=== PATIENT | female | born 1960 | race Caucasian/White ===

== ENCOUNTER 2016-12-02 20:53 | Emergency (ER) | payer BC ==
[~2016-12-02] VITALS: Ht 154.9 cm; Wt 56.1 kg
[~2016-12-02 20:53] MED LIST: ATV5 PO; FAMO20TA11 PO; PARO1TAB27 PO; ZFRODT4 SL
[2016-12-02 20:56] VITALS: TEMP 36.9; Ht 154.9 cm; Wt 56.1 kg
[2016-12-02] MEDS ORDERED: SULFAMETHOXAZOLE/TRIMETHOPRIM DS 800/160MG TAB PO STA (21:11)
[2016-12-02] MEDS ORDERED: CEFTRIAXONE SOD INJ 1 GM ADDVIAL IV STA (21:11)
[2016-12-02] MEDS ORDERED: ACET-1256 PO (21:32)
--- NOTE | 2016-12-02 21:32 | EMERGENCY ROOM VISIT NOTE ---
History Report prepared by Armando: Maren Goins Under the Supervision of: Dr. Allan Nichole M.D. First contact with patient: 21:05 Chief Complaint: INFECTION Stated Complaint: INFECTION IN RT ARM,RASH,RED SPLOTCHES Nursing Triage Summary: patient c/o right forearm redness/swelling that began yesterday that is beginning to spread. History of Present Illness The patient is a 56 year old female who presents to the Emergency Room with complaints of a worsening rash to her right forearm. She notes that the rash is red and splotchy. It began yesterday and has been spreading since then. The patient notes that her right arm is frequently puffy and swollen and she wraps it at night, but she has never had a similar rash before. Currently, she is not in any pain. She has a history of breast cancer with metastasis to the bones. She follows up with Dr. Alarcon of oncology and [facility] in [place]. She is currently on medication for her cancer. Source of History: patient Onset: yesterday Position: arm (right) Quality: other (red, splotchy) Timing: worsening Review of Systems See HPI for pertinent positives & negatives. A total of 10 systems reviewed and were otherwise negative. Past Medical & Surgical Medical Problems: (1) Breast cancer Family History No pertinent family history stated. Social History Smoking Status: Never Smoker Marital Status: Occupation Status: employed Current/Historical Medications Scheduled Bupropion (Wellbutrin), 150 MG PO QAM Calcium Carbonate-Cholecalcife (Calcium 600+D3 600-400 mg-Unit), 1 TAB PO BID Cephalexin Monohydrate (Keflex), 500 MG PO QID Cyclosporine (Ophth) (Restasis), 1 DROP OPB BID Everolimus (Afinitor), 10 MG PO QAM Exemestane (Aromasin), 25 MG PO QAM Fentanyl (Fentanyl), 75 MCG TOP CQ72HR Gabapentin (Neurontin), 300 MG PO Q4H Multivitamins/Minerals (Mvi With Minerals), 1 TAB PO DAILY Sulfa/Trimethoprim (Bactrim Ds 800MG/160MG), 1 TAB PO BID Venlafaxine Hcl (Effexor Xr), 75 MG PO QAM Venlafaxine Hcl (Effexor Xr), 150 MG PO QAM Scheduled PRN Acetaminophen (Tylenol), 500 MG PO Q4-6HRS PRN for Pain Tramadol (Ultram), 50 MG PO Q4-6HRS PRN for Pain Allergies Coded Allergies: Iodinated Contrast Media (Verified Allergy, Mild, RASH, 12/02/16) Physical Exam Vital Signs Date Time Temp Pulse Resp B/P Pulse Ox O2 Delivery O2 Flow Rate FiO2 12/02/16 22:37 76 20 112/69 98 Room Air 12/02/16 21:33 92 12/02/16 20:56 36.9 97 16 150/88 96 Room Air Physical Exam GENERAL: Patient is a healthy-appearing well-nourished 56 year old female HEAD: Normocephalic atraumatic EYES: Ocular movements intact pupils equal and react to light OROPHARYNX mucous membranes are moist no exudates present no erythema or edema present NECK: Supple no nuchal rigidity CHEST: Good equal expansion LUNGS: Clear and equal to auscultation CARDIAC: Normal S1 and S2 ABDOMEN: Soft nontender no guarding BACK: No CVA tenderness EXTREMITIES: No pain upon palpation normal muscle strength in all groups no clubbing or cyanosis. RIght forearm is grossly swollen with an area of redness to the anterior portion of the arm about 2x2 inches. NEURO: Patient is following commands is answering questions appropriately. Alert and oriented x3 Cranial Nerves 2-12 grossly intact Medical Decision & Procedures ER Provider Diagnostic Interpretation: Radiology results as stated below per my review and radiologist interpretation: ULTRASOUND RIGHT UPPER EXTREMITY VENOUS CLINICAL HISTORY: Right arm swelling. COMPARISON STUDY: No priors. TECHNIQUE: Real-time, grayscale, and color Doppler sonography of the deep veins of the right upper extremity is performed. Compression and augmentation were utilized. FINDINGS: There is no sonographic evidence of deep venous thrombosis identified in the right upper extremity. The right internal jugular, axillary, and brachial veins are patent and normally compressible. Normal venous waveforms and augmentation are seen within the right subclavian vein. The cephalic and basilic veins are clear. The visualized radial and ulnar veins are patent. No sonographic abnormality is identified at the site of erythema in the right upper extremity. IMPRESSION: There is no sonographic evidence of deep venous thrombosis identified in the right upper extremity. Electronically signed by: Will Ordonez M.D. 12/02/2016 10:24 PM Dictated Date/Time: 12/02/2016 10:23 PM Laboratory Results 12/02/16 21:25 Red Blood Count 3.97, Mean Corpuscular Volume 84.6, Mean Corpuscular Hemoglobin 27.7, Mean Corpuscular Hemoglobin Concent 32.7, Mean Platelet Volume 10.2, Neutrophils (%) (Auto) 61.2, Lymphocytes (%) (Auto) 28.1, Monocytes (%) (Auto) 8.8, Eosinophils (%) (Auto) 1.3, Basophils (%) (Auto) 0.3, Neutrophils # (Auto) 2.45, Lymphocytes # (Auto) 1.12, Monocytes # (Auto) 0.35, Eosinophils # (Auto) 0.05, Basophils # (Auto) 0.01 12/02/16 21:25 Test 12/02/16 21:25 White Blood Count 3.99 K/uL (4.8-10.8) Red Blood Count 3.97 M/uL (4.2-5.4) Hemoglobin 11.0 g/dL (12.0-16.0) Hematocrit 33.6 % (37-47) Mean Corpuscular Volume 84.6 fL (80-100) Mean Corpuscular Hemoglobin 27.7 pg (25-34) Mean Corpuscular Hemoglobin Concent 32.7 g/dl (32-36) Platelet Count 142 K/uL (130-400) Mean Platelet Volume 10.2 fL (7.4-10.4) Neutrophils (%) (Auto) 61.2 % Lymphocytes (%) (Auto) 28.1 % Monocytes (%) (Auto) 8.8 % Eosinophils (%) (Auto) 1.3 % Basophils (%) (Auto) 0.3 % Neutrophils # (Auto) 2.45 K/uL (1.4-6.5) Lymphocytes # (Auto) 1.12 K/uL (1.2-3.4) Monocytes # (Auto) 0.35 K/uL (0.11-0.59) Eosinophils # (Auto) 0.05 K/uL (0-0.5) Basophils # (Auto) 0.01 K/uL (0-0.2) RDW Standard Deviation 42.1 fL (36.4-46.3) RDW Coefficient of Variation 13.6 % (11.5-14.5) Immature Granulocyte % (Auto) 0.3 % Immature Granulocyte # (Auto) 0.01 K/uL (0.00-0.02) Anion Gap 8.0 mmol/L (3-11) Est Creatinine Clear Calc Drug Dose 43.6 ml/min Estimated GFR () 65.5 Estimated GFR (Non- 56.5 BUN/Creatinine Ratio 15.0 (10-20) Calcium Level 8.8 mg/dl (8.5-10.1) Total Bilirubin 0.2 mg/dl (0.2-1) Direct Bilirubin < 0.1 mg/dl (0-0.2) Aspartate Amino Transf (AST/SGOT) 39 U/L (15-37) Alanine Aminotransferase (ALT/SGPT) 46 U/L (12-78) Alkaline Phosphatase 84 U/L (45-117) Total Protein 7.5 gm/dl (6.4-8.2) Albumin 3.1 gm/dl (3.4-5.0) Lipase 88 U/L (73-393) Labs reviewed by ED physician. Medications Administered Medications (Trade) Dose Ordered Sig/Celine Route Start Time Stop Time Status Last Admin Dose Admin Ceftriaxone Sodium (Rocephin Inj) 1 gm NOW STAT IV 12/02/16 21:11 12/02/16 21:13 DC 12/02/16 21:34 1 GM Trimethoprim/ Sulfamethoxazole (Septra Ds 800/ 160MG Tab) 1 tab NOW STAT PO 12/02/16 21:11 12/02/16 21:13 DC 12/02/16 21:34 1 TAB ED Course 2106: Past medical records reviewed. The patient was evaluated in room C8. A complete history and physical examination was performed. 2110: Ordered Trimethoprim/Sulfamethoxazole 1 tab PO, Rocephin Inj 1 gm IV. 4: Upon reexamination the patient is resting comfortably. I discussed results and treatment plan with the patient. She verbalizes agreement and understanding. The patient is ready for discharge. Medical Decision Differential diagnosis: Etiologies such as cellulitis, abscess, MRSA infection, DVT, necrotizing fasciitis, dermatitis, drug eruption, as well as others were entertained. This is a 56-year-old female who presents emergency department complaining of swelling as well as blotchiness to her right upper extremity the patient does not have an elevation in her white blood count however she has a history of lymph node biopsies in this arm. The patient was sent for an ultrasound of the arm. I felt that she can be started on Rocephin as well as Bactrim. I think that the patient is well enough to be discharged home for follow-up with her primary care physician. Patient was in agreement with the treatment plan. Impression Primary Impression: Cellulitis of arm, right Scribe Attestation The scribe's documentation has been prepared under my direction and personally reviewed by me in its entirety. I confirm that the note above accurately reflects all work, treatment, procedures, and medical decision making performed by me. Departure Information Dispostion Home / Self-Care Prescriptions Sulfa/Trimethoprim (Bactrim Ds 800MG/160MG) Tab 1 TAB PO BID for 10 Days, #20 TAB Prov: Allan Nichole MD 12/02/16 Cephalexin Monohydrate (KEFLEX) 500 Mg Cap 500 MG PO QID, #10 CAP Prov: Allan Nichole MD 12/02/16 Referrals Stevan Alarcon M.D. (PCP) Patient Instructions Cellulitis - [facility], My [facility] Additional Instructions You have been examined and treated today on an emergency basis only. This is not a substitute for, or an effort to provide, complete comprehensive medical care. It is impossible to recognize and treat all injuries or illnesses in a single emergency department visit. It is therefore important that you follow up closely with Dr More. Call as soon as possible for an appointment. Thank you for your time and consideration. I look forward to speaking with you again soon. Please don't hesitate to call us if you have any questions.
[2016-12-02 21:37] LABS: BASO % 0.3 %; BASO ABS # 0.01 K/uL (0-0.2); COMPLETE YES; EOS % 1.3 %; HEMATOCRIT 33.6 % (37-47); IG% 0.3 %; LYMPH % 28.1 %; LYMPH ABS # 1.12 K/uL (1.2-3.4); MEAN CELL VOLUME 84.6 fL (80-100); MEAN CORPUSCULAR HEMOGLOBIN 27.7 pg (25-34); MEAN CORPUSCULAR HGB CONC 32.7 g/dl (32-36); MEAN PLATELET VOLUME 10.2 fL (7.4-10.4); MONO % 8.8 %; NEUT % 61.2 %; PLATELET COUNT 142 K/uL (130-400); RED BLOOD COUNT 3.97 M/uL (4.2-5.4); WHITE BLOOD COUNT 3.99 K/uL (4.8-10.8)
[2016-12-02 21:53] LABS: ALT/SGPT 46 U/L (12-78); BLOOD UREA NITROGEN 17 mg/dl (7-18); CALCIUM 8.8 mg/dl (8.5-10.1); CARBON DIOXIDE 30 mmol/L (21-32); CHLORIDE 102 mmol/L (98-107); GLUCOSE 96 mg/dl (70-99); POTASSIUM 3.8 mmol/L (3.5-5.1); SODIUM 140 mmol/L (136-145)
[2016-12-02 21:57] LABS: ALKALINE PHOSPHATASE 84 U/L (45-117); AST/SGOT 39 U/L (15-37)
--- NOTE | 2016-12-02 22:25 | DIAGNOSTIC IMAGING REPORT ---
ULTRASOUND RIGHT UPPER EXTREMITY VENOUS CLINICAL HISTORY: Right arm swelling. COMPARISON STUDY: No priors. TECHNIQUE: Real-time, grayscale, and color Doppler sonography of the deep veins of the right upper extremity is performed. Compression and augmentation were utilized. FINDINGS: There is no sonographic evidence of deep venous thrombosis identified in the right upper extremity. The right internal jugular, axillary, and brachial veins are patent and normally compressible. Normal venous waveforms and augmentation are seen within the right subclavian vein. The cephalic and basilic veins are clear. The visualized radial and ulnar veins are patent. No sonographic abnormality is identified at the site of erythema in the right upper extremity. IMPRESSION: There is no sonographic evidence of deep venous thrombosis identified in the right upper extremity. Electronically signed by: Will Ordonez M.D. 12/02/2016 10:24 PM Dictated Date/Time: 12/02/2016 10:23 PM
[2016-12-02 22:37] VITALS: BP 112/69; PULSE 76; O2SAT 98
[2016-12-02] MEDS ORDERED: CEPH500C2 PO (22:50)
[2016-12-02] MEDS ORDERED: SULF800T23 PO (22:50)
[2017-06-20] MEDS ORDERED: VNCS125 PO ×2 (15:43→16:06)
[2017-06-20] MEDS ORDERED: DOCU-94 PO (15:46)
[2017-06-20] MEDS ORDERED: VANC1CAP19 PO (16:37)
== END 2016-12-02 23:03 | disposition home or self-care (01) ==
LOC: C.EDB 20:54 → C.EDC 23:03
DX: L03.111 Cellulitis of right axilla (principal); Z85.3 Personal history of malignant neoplasm of breast; Z79.899 Other long term (current) drug therapy; Z91.041 Radiographic dye allergy status

== ENCOUNTER → 2016-12-15 | Outpatient (CLI) | payer BC ==
[~2016-12-15] MED LIST changes: +ACET-1256 PO; +ATV/1 PO; -ATV5 PO; +BUPR75TA20 PO; +CALC-574 PO; +CEPH500C2 PO; +CYCL0.052 OPB; +DENOINJ INJ; +DOCU-94 PO; +EVER10TA PO; +EXEM1TAB PO; -FAMO20TA11 PO; +FENT75DI2 TOP; +GABA-113 PO; +GADAVIST IV PRN; +IBUP-1050 PO; +MULT-513 PO; -PARO1TAB27 PO; +TRAM-10 PO; +VANC1CAP19 PO; +VENL150C PO; +VENL75CA PO; +VNCS125 PO; -ZFRODT4 SL
--- NOTE | 2016-12-15 15:27 | DIAGNOSTIC IMAGING REPORT ---
MRI OF THE BRAIN WITHOUT AND WITH IV CONTRAST CLINICAL HISTORY: Breast carcinoma, confusion, disorientation. History of bone metastases. Evaluate for parenchymal metastatic disease. COMPARISON STUDY: No previous studies for comparison. TECHNIQUE: MRI of the brain was performed from the vertex to the skull base utilizing various T1 and T2 weighted sequences. Following the IV administration of 5.5 mL of Gadavist contrast, additional enhanced images were obtained. FINDINGS: Sagittal T1, axial diffusion, proton density and T2 weighted axial, coronal FLAIR, and pre and post axial T1-weighted images were acquired. These were supplemented with post gadolinium coronal T1 weighted images. The patient was imaged under 0.7 (MRI scanner. No intra or extra-axial mass lesions are visualized. Axial diffusion-weighted images reveal no evidence of acute or subacute infarction. There is no evidence of ventricular dilatation. Proton density T2-weighted and FLAIR images reveal a punctate focus of increased T2 signal within the subcortical left posterior frontal white matter. This is of doubtful acute clinical significance There are no abnormal flow voids. There is no evidence of pathologic enhancement. There is a right maxilla sinus retention cyst. IMPRESSION: 1. No acute intracranial findings 2. No evidence of intracranial metastatic disease 3. No evidence of acute or subacute infarction Electronically signed by: Danny Holly M.D. 12/15/2016 3:25 PM Dictated Date/Time: 12/15/2016 3:22 PM
== END | disposition home or self-care (01) ==
LOC: C.OPENMRI 14:13
PROVIDERS: ATTEND Internal Medicine Hematology
DX: R41.0 Disorientation, unspecified (principal); Z85.3 Personal history of malignant neoplasm of breast

== ENCOUNTER → 2017-06-02 | Outpatient (CLI) | payer BC ==
[~2017-06-02] MED LIST changes: -GADAVIST IV PRN
== END | disposition home or self-care (01) ==
LOC: C.PATHSPEC 17:23
PROVIDERS: ATTEND Dentist Oral and Maxillofacial Surgery
DX: M87.9 Osteonecrosis, unspecified (principal)

== ENCOUNTER 2017-06-16 15:40 | Inpatient (IN) | payer OTHER, BC ==
[~2017-06-16] VITALS: Ht 154.9 cm; Wt 53.9 kg
[~2017-06-16 15:40] MED LIST changes: -ATV/1 PO; -BUPR75TA20 PO; -CALC-574 PO; -CEPH500C2 PO; -CYCL0.052 OPB; -DENOINJ INJ; -DOCU-94 PO; -EVER10TA PO; -EXEM1TAB PO; -FENT75DI2 TOP; -GABA-113 PO; -IBUP-1050 PO; -MULT-513 PO; -TRAM-10 PO; -VANC1CAP19 PO; -VENL150C PO; -VENL75CA PO; -VNCS125 PO
[2017-06-16 15:44] VITALS: Ht 154.9 cm; Wt 53.9 kg
[2017-06-16] MEDS ORDERED: SODIUM CHLORIDE 0.9% 1000ML 1,000 ML IV STA ×3 (17:02→22:34)
[2017-06-16] MEDS ORDERED: ONDANSETRON 8 MG/54 ML D5W IV STA ×2 (17:02→21:09)
--- NOTE | 2017-06-16 17:14 | EMERGENCY ROOM VISIT NOTE ---
History Report prepared by Armando: Scott Mathews Under the Supervision of: Dr. Gina Mckeon D.O. First contact with patient: 16:50 Chief Complaint: FLU LIKE SX Stated Complaint: FLU TYPE SYMPTOMS, DEYHRATED History of Present Illness The patient is a 56 year old female who presents to the Emergency Room with complaints of intermittent diarrhea beginning three nights ago. The patient states that her symptoms began with an achy feeling, subjective fever, and a headache. She reports that she then developed diarrhea and vomiting. The patient states that she has 8-10 episodes of diarrhea daily. She reports that when she consumes anything, even ice chips, she dry heaves. The patient notes that she also developed intermittent, sharp, abdominal pain and bloating that has been reduced. She states that she has similar symptoms last month that lasted a day. The patient reports that she currently has metastatic breast cancer. She notes that she was treated with chemotherapy and currently takes pills to stabilize it. She denies hematochezia, recent travel, eating at new restaurants, rashes, and edema to the legs. The patient also denies a history of IBS, Crohn's disease, and colitis. Source of History: patient Onset: three nights ago Position: abdomen Quality: other (diarrhea) Timing: intermittent Associated Symptoms: + fevers, + vomiting, + abdominal pain, No hematochezia , No rash Note: Associated symptoms: achy feeling, bloating Denies: recent travel, eating at new restaurants, and edema to the legs Review of Systems See HPI for pertinent positives & negatives. A total of 10 systems reviewed and were otherwise negative. Past Medical & Surgical Medical Problems: (1) Breast cancer (2) C. difficile diarrhea Family History Patient reports no known family medical history. Social History Smoking Status: Never Smoker Marital Status: Occupation Status: employed Current/Historical Medications Scheduled Bupropion (Wellbutrin), 150 MG PO QAM Calcium Carbonate-Cholecalcife (Calcium 600+D3 600-400 mg-Unit), 1 TAB PO BID Cyclosporine (Ophth) (Restasis), 1 DROP OPB BID Denosumab (Xgeva), 1 DOSE INJ Q3MO Everolimus (Afinitor), 10 MG PO QAM Exemestane (Aromasin), 25 MG PO QAM Fentanyl (Fentanyl), 75 MCG TOP CQ72HR Gabapentin (Neurontin), 300 MG PO Q4H Multivitamins/Minerals (Mvi With Minerals), 1 TAB PO DAILY Venlafaxine Hcl (Effexor Xr), 75 MG PO QAM Venlafaxine Hcl (Effexor Xr), 150 MG PO QAM Scheduled PRN Ibuprofen (Advil), 200-400 MG PO Q4H PRN for Pain Tramadol (Ultram), 50 MG PO Q4-6HRS PRN for Pain Allergies Coded Allergies: Iodinated Contrast Media (Verified Allergy, Mild, RASH, 12/02/16) Physical Exam Vital Signs Date Time Temp Pulse Resp B/P (MAP) Pulse Ox O2 Delivery O2 Flow Rate FiO2 06/16/17 22:10 83 18 102/58 98 Room Air 06/16/17 20:10 90 18 135/66 94 Room Air 06/16/17 19:01 75 18 103/57 98 Room Air 06/16/17 17:30 79 16 121/66 99 Room Air 06/16/17 15:44 36.9 105 16 105/68 96 Room Air Physical Exam GENERAL: alert, pale appearing, well nourished, no distress, non-toxic EYE EXAM: normal conjunctiva, PERRL and EOM's grossly intact OROPHARYNX: no exudate, no erythema, lips, buccal mucosa, and tongue normal and mucous membranes are dry NECK: supple, no nuchal rigidity, no adenopathy, non-tender LUNGS: Clear to auscultation. Normal chest wall mechanics HEART: no murmurs, S1 normal and S2 normal ABDOMEN: abdomen soft, normo-active bowel sounds, no masses, no rebound or guarding. Generalized tenderness to palpation. BACK: Back is symmetrical on inspection and there is no deformity, no midline tenderness, no CVA tenderness. SKIN: no rashes and no bruising UPPER EXTREMITIES: upper extremities are grossly normal. LOWER EXTREMITIES: No pitting edema. NEURO EXAM: Normal sensorium, cranial nerves II-XII grossly intact, normal speech, no gross weakness of arms, no gross weakness of legs. Medical Decision & Procedures ER Provider Diagnostic Interpretation: Radiology results have been interpreted by the radiologist and reviewed by me. PA CHEST WITH ABDOMINAL SERIES CLINICAL HISTORY: Generalized abdominal pain. Diarrhea. FINDINGS: A PR chest radiograph is compared to study dated 08/21/2009. The cardiomediastinal silhouette is unremarkable. The lungs and pleural spaces are clear. No pneumothorax is seen. The skeletal structures are osteopenic. The bony thorax is grossly intact. Mild thoracolumbar scoliosis is observed. Surgical clips are noted in the right axilla and along the right chest wall. Supine and erect abdominal radiographs are correlated with abdominal ultrasound dated 02/21/2015. There is a nonobstructed abdominal bowel gas pattern. No evidence of intraperitoneal free air is seen. There are no abnormal abdominal calcifications. The lumbosacral spine and bony pelvis appear intact. Numerous osteoblastic bone lesions are suggested in the sacrum, the lumbar spine, and the pelvis. IMPRESSION: 1. No active disease in the chest. 2. Nonobstructed abdominal bowel gas pattern. 3. Findings suggest multifocal osteoblastic metastatic disease. Correlation with the patient's clinical findings and oncological history will be required. Electronically signed by: Will Ordonez M.D. 06/16/2017 6:41 PM Dictated Date/Time: 06/16/2017 6:38 PM Laboratory Results 06/16/17 17:30 Red Blood Count 3.72, Mean Corpuscular Volume 83.1, Mean Corpuscular Hemoglobin 26.3, Mean Corpuscular Hemoglobin Concent 31.7, Mean Platelet Volume 9.8, Neutrophils (%) (Auto) 88.3, Lymphocytes (%) (Auto) 5.2, Monocytes (%) (Auto) 5.5, Eosinophils (%) (Auto) 0.5, Basophils (%) (Auto) 0.1, Neutrophils # (Auto) 7.42, Lymphocytes # (Auto) 0.44, Monocytes # (Auto) 0.46, Eosinophils # (Auto) 0.04, Basophils # (Auto) 0.01 06/16/17 17:30 Test 06/16/17 17:30 06/16/17 19:16 White Blood Count 8.40 K/uL (4.8-10.8) Red Blood Count 3.72 M/uL (4.2-5.4) Hemoglobin 9.8 g/dL (12.0-16.0) Hematocrit 30.9 % (37-47) Mean Corpuscular Volume 83.1 fL (80-100) Mean Corpuscular Hemoglobin 26.3 pg (25-34) Mean Corpuscular Hemoglobin Concent 31.7 g/dl (32-36) Platelet Count 112 K/uL (130-400) Mean Platelet Volume 9.8 fL (7.4-10.4) Neutrophils (%) (Auto) 88.3 % Lymphocytes (%) (Auto) 5.2 % Monocytes (%) (Auto) 5.5 % Eosinophils (%) (Auto) 0.5 % Basophils (%) (Auto) 0.1 % Neutrophils # (Auto) 7.42 K/uL (1.4-6.5) Lymphocytes # (Auto) 0.44 K/uL (1.2-3.4) Monocytes # (Auto) 0.46 K/uL (0.11-0.59) Eosinophils # (Auto) 0.04 K/uL (0-0.5) Basophils # (Auto) 0.01 K/uL (0-0.2) RDW Standard Deviation 42.8 fL (36.4-46.3) RDW Coefficient of Variation 14.0 % (11.5-14.5) Immature Granulocyte % (Auto) 0.4 % Immature Granulocyte # (Auto) 0.03 K/uL (0.00-0.02) Anion Gap 7.0 mmol/L (3-11) Est Creatinine Clear Calc Drug Dose 47.9 ml/min Estimated GFR () 73.5 Estimated GFR (Non- 63.4 BUN/Creatinine Ratio 16.3 (10-20) Lactic Acid Level 0.8 mmol/L (0.4-2.0) Calcium Level 8.0 mg/dl (8.5-10.1) Magnesium Level 2.1 mg/dl (1.8-2.4) Total Bilirubin 0.3 mg/dl (0.2-1) Aspartate Amino Transf (AST/SGOT) 27 U/L (15-37) Alanine Aminotransferase (ALT/SGPT) 21 U/L (12-78) Alkaline Phosphatase 73 U/L (45-117) Total Protein 6.7 gm/dl (6.4-8.2) Albumin 2.7 gm/dl (3.4-5.0) Globulin 4.0 gm/dl (2.5-4.0) Albumin/Globulin Ratio 0.7 (0.9-2) Lipase 46 U/L (73-393) Urine Color YELLOW Urine Appearance CLEAR (CLEAR) Urine pH 5.0 (4.5-7.5) Urine Specific [place] 1.021 (1.000-1.030) Urine Protein 3+ (NEG) Urine Glucose (UA) NEG (NEG) Urine Ketones 3+ (NEG) Urine Occult Blood 2+ (NEG) Urine Nitrite NEG (NEG) Urine Bilirubin NEG (NEG) Urine Urobilinogen NEG (NEG) Urine Leukocyte Esterase NEG (NEG) Urine WBC (Auto) 1-5 /hpf (0-5) Urine RBC (Auto) 0-4 /hpf (0-4) Urine Hyaline Casts (Auto) 10-30 /lpf (0-5) Urine Epithelial Cells (Auto) >30 /lpf (0-5) Urine Bacteria (Auto) 2+ (NEG) Urine Renal Epithelial Cells /lpf (0-5) Urine Pathogenic Casts 5-10 GRANULAR CASTS /lpf (0) Urine Yeast (Auto) BUDDING (NONE PRSENT) Date/Time Source Procedure Growth Status 06/16/17 19:16 Stool C.difficile Toxin B Gene (PCR) - Final Positive for C. difficile toxin B gene Complete Laboratory results per my review. Medications Administered Medications (Trade) Dose Ordered Sig/Celine Route Start Time Stop Time Status Last Admin Dose Admin Sodium Chloride 1,000 ml @ 999 mls/hr Q1H1M STAT IV 06/16/17 17:02 06/16/17 18:21 DC 06/16/17 17:02 999 MLS/HR Ondansetron HCl (Zofran 8mg Iv) 8 mg NOW STAT IV 06/16/17 17:02 06/16/17 17:04 DC 06/16/17 17:29 8 MG Dicyclomine HCl (Bentyl Cap) 10 mg NOW ONCE PO 06/16/17 17:15 06/16/17 17:16 DC 06/16/17 17:29 10 MG Sodium Chloride 1,000 ml @ 999 mls/hr Q1H1M STAT IV 06/16/17 19:06 06/16/17 20:06 DC 06/16/17 20:40 999 MLS/HR Metronidazole (Flagyl Tab) 500 mg NOW STAT PO 06/16/17 20:25 06/16/17 20:27 DC 06/16/17 21:02 500 MG Ondansetron HCl (Zofran 8mg Iv) 8 mg NOW STAT IV 06/16/17 21:09 06/16/17 21:10 DC 06/16/17 21:15 8 MG Sodium Chloride 1,000 ml @ 125 mls/hr Q8H STAT IV 06/16/17 22:34 06/17/17 06:33 06/16/17 23:04 125 MLS/HR ECG Indication: abdominal pain Rate (beats per minute): 88 Rhythm: normal sinus Findings: no acute ischemic change, no ectopy, other (Normal axis, normal interval) ED Course 165: The patient was evaluated in room C07. A complete history and physical exam was performed. 1702: Ordered Ondansetron HCl 8mg IV, Sodium Chloride 1000 ml @ 999 mls/hr IV 1715: Ordered Bentyl Cap 10mg PO 190: Ordered Sodium Chloride 1000 ml @ 999 mls/hr IV 1911: I reevaluated the patient and discussed current exam findings. She states she feels better. 2024: Ordered Flagyl Tab 500mg PO 2108: Ordered Ondansetron HCl 8mg IV 2144: I reevaluated the patient, and she feels better and is going to try a PO trial. I discussed current exam findings. She reports she is still slightly nauseated, and her abdominal pain is gone. 2233: Ordered Sodium Chloride 1000 ml @ 125 mls/hr IV 2234: Upon reevaluation, the patient's nausea was intensified with the PO trial. She states "there is no way I can go home". I discussed the findings and the treatment plan with the patient. She expresses agreement and understanding. 2241: I discussed the patient's case with Dr. Hadley, [facility]. The patient will be evaluated for further treatment. Medical Decision Differential diagnoses includes but is not limited to gastritis, peptic ulcer disease, GERD, gallbladder disease, pancreatitis, small bowel obstruction, acute coronary syndrome, pericarditis, ischemic bowel, irritable bowel disease, irritable bowel syndrome, appendicitis, diverticulitis, malignancy, hernia, urinary tract infection, torsion, /ectopic , perforation, trauma, infectious. Lab stable compared to prior, especially in light of patient's history of metastatic disease and chemotherapy. Patient ill-appearing and dehydrated clinically, however labs reassuring. No evidence of bacteremia/sepsis. Patient 's abdomen soft and nontender, did not feel required additional imaging. Patient stool culture positive for C. difficile, additional stool culture still pending. Started on oral Flagyl. Patient was able tolerate some sips of by mouth, however stated that it made her nausea and pain worse. Patient given 2 L of IV fluid in the emergency Department but stated still felt too ill to go home. Patient admitted by the hospitalist for additional monitoring and treatment. Doubt perforation, GI bleed, bowel obstruction, cardiac etiology, vascular etiology. Consults Time Called: 2235 Consulting Physician: John [facility] Returned Call: [phone] I discussed the patient's [facility] The patient will be evaluated for further treatment. Impression Primary Impression: Dehydration Additional Impressions: Diarrhea C. difficile diarrhea Metastatic breast cancer Scribe Attestation The scribe's documentation has been prepared under my direction and personally reviewed by me in its entirety. I confirm that the note above accurately reflects all work, treatment, procedures, and medical decision making performed by me. Departure Information Dispostion Being Evaluated By Hospitalist Referrals Danii More M.D. (MEDICAL) (PCP) Patient Instructions [facility] Problem Qualifiers Additional Impressions: Diarrhea Diarrhea type: infectious Qualified Codes: A09 - Infectious gastroenteritis and colitis, unspecified
[2017-06-16] MEDS ORDERED: DICYCLOMINE HCL 10 MG CAP PO ONE (17:15)
[2017-06-16] MEDS ORDERED: DENOINJ INJ (17:31)
[2017-06-16] MEDS ORDERED: IBUP-1050 PO (17:31)
[2017-06-16 17:55] LABS: HEMATOCRIT 30.9 % (37-47); MEAN CELL VOLUME 83.1 fL (80-100); MEAN CORPUSCULAR HEMOGLOBIN 26.3 pg (25-34); MEAN CORPUSCULAR HGB CONC 31.7 g/dl (32-36); MEAN PLATELET VOLUME 9.8 fL (7.4-10.4); PLATELET COUNT 112 K/uL (130-400); RED BLOOD COUNT 3.72 M/uL (4.2-5.4)
[2017-06-16 18:09] LABS: BUN/CREATININE RATIO 16.3 (10-20); MAGNESIUM 2.1 mg/dl (1.8-2.4); POTASSIUM 3.6 mmol/L (3.5-5.1)
[2017-06-16 18:12] LABS: ALB/GLOB RATIO 0.7 (0.9-2)
--- NOTE | 2017-06-16 18:42 | DIAGNOSTIC IMAGING REPORT ---
PA CHEST WITH ABDOMINAL SERIES CLINICAL HISTORY: Generalized abdominal pain. Diarrhea. FINDINGS: A PA chest radiograph is compared to study dated 08/21/2009. The cardiomediastinal silhouette is unremarkable. The lungs and pleural spaces are clear. No pneumothorax is seen. The skeletal structures are osteopenic. The bony thorax is grossly intact. Mild thoracolumbar scoliosis is observed. Surgical clips are noted in the right axilla and along the right chest wall. Supine and erect abdominal radiographs are correlated with abdominal ultrasound dated 02/21/2015. There is a nonobstructed abdominal bowel gas pattern. No evidence of intraperitoneal free air is seen. There are no abnormal abdominal calcifications. The lumbosacral spine and bony pelvis appear intact. Numerous osteoblastic bone lesions are suggested in the sacrum, the lumbar spine, and the pelvis. IMPRESSION: 1. No active disease in the chest. 2. Nonobstructed abdominal bowel gas pattern. 3. Findings suggest multifocal osteoblastic metastatic disease. Correlation with the patient's clinical findings and oncological history will be required. Electronically signed by: Will Ordonez M.D. 06/16/2017 6:41 PM Dictated Date/Time: 06/16/2017 6:38 PM
[2017-06-16 18:45] LABS: BASO % 0.1 %; BASO ABS # 0.01 K/uL (0-0.2); COMPLETE YES; EOS % 0.5 %; IG% 0.4 %; LYMPH % 5.2 %; LYMPH ABS # 0.44 K/uL (1.2-3.4); MONO % 5.5 %; NEUT % 88.3 %
[2017-06-16 19:35] LABS: URINE APPEARANCE CLEAR (CLEAR); URINE BILIRUBIN NEG (NEG); URINE COLOR YELLOW; URINE EPITHELIAL CELL AUTO >30 /lpf (0-5); URINE NITRITE NEG (NEG); URINE SPECIFIC GRAVITY 1.021 (1.000-1.030); UROBILINOGEN NEG (NEG)
[2017-06-16 19:40] LABS: MANUAL MICROSCOPIC REQUIRED? NO; REVIEW REQ? YES
[2017-06-16 19:57] LABS: URINE PATH CASTS 5-10 GRANULAR CASTS /lpf (0)
[2017-06-16 19:58] LABS: ZZUR CULT IF INDIC CLEAN CATCH YES
[2017-06-16] MEDS ORDERED: METRONIDAZOLE 250 MG TAB PO STA (20:25)
[2017-06-16] MEDS ORDERED: CYCL0.052 OPB (21:32)
[2017-06-16] MEDS ORDERED: EVER10TA PO (21:32)
[2017-06-16] MEDS ORDERED: VENL75CA PO (21:32)
[2017-06-16] MEDS ORDERED: CALC-574 PO (21:32)
[2017-06-16] MEDS ORDERED: GABA-113 PO (21:32)
[2017-06-16] MEDS ORDERED: VENL150C PO (21:32)
[2017-06-16] MEDS ORDERED: EXEM1TAB PO (21:32)
[2017-06-16] MEDS ORDERED: FENT75DI2 TOP (21:32)
[2017-06-16] MEDS ORDERED: MULT-513 PO (21:32)
[2017-06-16] MEDS ORDERED: TRAM-10 PO (21:32)
[2017-06-16] MEDS ORDERED: BUPR75TA20 PO (21:32)
--- NOTE | 2017-06-16 23:18 | History and Physical ---
History & Physical Date & Time of Service: Jun 16, 2017 at 23:18 Chief Complaint: Flu Type Symptoms, Deyhrated Primary Care Physician: Danii More M.D. 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 was afebrile , normal white count , chronic anemia with Hb stable to approx baseline stool sample positive for C diff toxin assay pt denies of any sick contact or recent travel recently treated with PO Clindamycin for dental procedure /infection approx 4 - 6 weeks back pt given PO Flagyl in ED , pt continued to have loose watery diarrhea associated with severe abdominal cramps pt will be admitted to Medical floor for Iv hydration , supportive Care for poor PO intake /nausea Past Medical/Surgical History Medical Problems: (1) Breast cancer Status: Chronic Social History Smoking Status: Never Smoker Marital Status: Occupational Status: employed Multi-Drug Resistant Organisms History of MDRO: No Allergies Coded Allergies: Iodinated Contrast Media (Verified Allergy, Mild, RASH, 12/02/16) Home Medications Scheduled Bupropion (Wellbutrin), 150 MG PO QAM Calcium Carbonate-Cholecalcife (Calcium 600+D3 600-400 mg-Unit), 1 TAB PO BID Cyclosporine (Ophth) (Restasis), 1 DROP OPB BID Denosumab (Xgeva), 1 DOSE INJ Q3MO Everolimus (Afinitor), 10 MG PO QAM Exemestane (Aromasin), 25 MG PO QAM Fentanyl (Fentanyl), 75 MCG TOP [id number] Gabapentin (Neurontin), 300 MG PO Q4H Multivitamins/Minerals (Mvi With Minerals), 1 TAB PO DAILY Venlafaxine Hcl (Effexor Xr), 75 MG PO QAM Venlafaxine Hcl (Effexor Xr), 150 MG PO QAM Scheduled PRN Ibuprofen (Advil), 200-400 MG PO Q4H PRN for Pain Tramadol (Ultram), 50 MG PO Q4-6HRS PRN for Pain Review of Systems Constitutional: + chills, + weakness, + fatigue Respiratory: No cough, No sputum, No wheezing, No shortness of breath, No dyspnea on exertion, No dyspnea at rest, No hemoptysis, No problem reported Cardiovascular: No chest pain, No orthopnea, No PND, No edema, No claudication , No palpitations, No problem reported Abdomen: + pain, + nausea, + diarrhea Musculoskeletal: + problem reported (chronic back pain from bone mets ) Neurologic: + weakness, + vertigo Psychiatric: + anxiety Endocrine: + fatigue Physical Exam Vital Signs Date Time Temp Pulse Resp B/P (MAP) Pulse Ox O2 Delivery O2 Flow Rate FiO2 06/16/17 22:10 83 18 102/58 98 Room Air 06/16/17 20:10 90 18 135/66 94 Room Air 06/16/17 19:01 75 18 103/57 98 Room Air 06/16/17 17:30 79 16 121/66 99 Room Air 06/16/17 15:44 36.9 105 16 105/68 96 Room Air General Appearance: + pertinent finding (chronically ill appearting ) Head: normocephalic, atraumatic Eyes: normal inspection, PERRL, EOMI, sclerae normal Neck: supple, no adenopathy, thyroid normal, no JVD Respiratory/Chest: chest non-tender, lungs clear, normal breath sounds, no respiratory distress Cardiovascular: regular rate, rhythm, no edema, no JVD, normal peripheral pulses Abdomen/GI: normal bowel sounds, soft, + tenderness (on lower abdomen ) Extremities/Musculoskelatal: no calf tenderness, normal capillary refill, no pedal edema Neurologic/Psych: no motor/sensory deficits, alert, normal mood/affect, oriented x 3 Diagnostics Laboratory Results Results Past 24 Hours Test 06/16/17 17:30 06/16/17 19:16 Range/Units White Blood Count 8.40 4.8-10.8 K/uL Red Blood Count 3.72 4.2-5.4 M/uL Hemoglobin 9.8 12.0-16.0 g/dL Hematocrit 30.9 37-47 % Mean Corpuscular Volume 83.1 80-100 fL Mean Corpuscular Hemoglobin 26.3 25-34 pg Mean Corpuscular Hemoglobin Concent 31.7 32-36 g/dl Platelet Count 112 130-400 K/uL Mean Platelet Volume 9.8 7.4-10.4 fL Neutrophils (%) (Auto) 88.3 % Lymphocytes (%) (Auto) 5.2 % Monocytes (%) (Auto) 5.5 % Eosinophils (%) (Auto) 0.5 % Basophils (%) (Auto) 0.1 % Neutrophils # (Auto) 7.42 1.4-6.5 K/uL Lymphocytes # (Auto) 0.44 1.2-3.4 K/uL Monocytes # (Auto) 0.46 0.11-0.59 K/uL Eosinophils # (Auto) 0.04 0-0.5 K/uL Basophils # (Auto) 0.01 0-0.2 K/uL RDW Standard Deviation 42.8 36.4-46.3 fL RDW Coefficient of Variation 14.0 11.5-14.5 % Immature Granulocyte % (Auto) 0.4 % Immature Granulocyte # (Auto) 0.03 0.00-0.02 K/uL Sodium Level 139 136-145 mmol/L Potassium Level 3.6 3.5-5.1 mmol/L Chloride Level 107 98-107 mmol/L Carbon Dioxide Level 25 21-32 mmol/L Anion Gap 7.0 3-11 mmol/L Blood Urea Nitrogen 16 7-18 mg/dl Creatinine 1.00 0.60-1.20 mg/dl Est Creatinine Clear Calc Drug Dose 47.9 ml/min Estimated GFR () 73.5 Estimated GFR (Non- 63.4 BUN/Creatinine Ratio 16.3 10-20 Random Glucose 87 70-99 mg/dl Lactic Acid Level 0.8 0.4-2.0 mmol/L Calcium Level 8.0 8.5-10.1 mg/dl Magnesium Level 2.1 1.8-2.4 mg/dl Total Bilirubin 0.3 0.2-1 mg/dl Aspartate Amino Transf (AST/SGOT) 27 15-37 U/L Alanine Aminotransferase (ALT/SGPT) 21 12-78 U/L Alkaline Phosphatase 73 45-117 U/L Total Protein 6.7 6.4-8.2 gm/dl Albumin 2.7 3.4-5.0 gm/dl Globulin 4.0 2.5-4.0 gm/dl Albumin/Globulin Ratio 0.7 0.9-2 Lipase 46 73-393 U/L Urine Color YELLOW Urine Appearance CLEAR CLEAR Urine pH 5.0 4.5-7.5 Urine Specific [place] 1.021 1.000-1.030 Urine Protein 3+ NEG Urine Glucose (UA) NEG NEG Urine Ketones 3+ NEG Urine Occult Blood 2+ NEG Urine Nitrite NEG NEG Urine Bilirubin NEG NEG Urine Urobilinogen NEG NEG Urine Leukocyte Esterase NEG NEG Urine WBC (Auto) 1-5 0-5 /hpf Urine RBC (Auto) 0-4 0-4 /hpf Urine Hyaline Casts (Auto) 10-30 0-5 /lpf Urine Epithelial Cells (Auto) >30 0-5 /lpf Urine Bacteria (Auto) 2+ NEG Urine Renal Epithelial Cells 0-5 /lpf Urine Pathogenic Casts 5-10 GRANULAR CASTS 0 /lpf Urine Yeast (Auto) BUDDING NONE PRSENT Microbiology Results 06/16/17 C.difficile Toxin B Gene (PCR) - Final, Complete Positive for C. difficile toxin B gene 06/16/17 Shiga Toxin Test, Received Pending 06/16/17 Stool Culture, Received Pending 06/16/17 Urine Culture, Received Pending Diagnostic Radiology XRAY OF ABDOMEN : IMPRESSION: 1. No active disease in the chest. 2. Non obstructed abdominal bowel gas pattern. 3. Findings suggest multifocal osteoblastic metastatic disease. Correlation with the patient's clinical findings and oncological history will be required. Impression Assessment and Plan C DIFF COLITIS : presents with few days of abdominal pain, nausea , ongoing diarrhea , severe abdominal cramps with bowel movement Stool + C diff recently had tooth extraction ; was treated with PO Clindamycin afterward for infection possible cause of C diff diarrhea no evidence of sepsis , normal white count , no fever or chills hemodynamically stable Xray of abdomen no evidence of inflammation pt was started with PO Flagyl in ED given immunocompromised status ( Metastatic breast CA on chemo /immuno therapy ) -will change the regimen to PO Vancomycin will need total 10 days tx cont contact precaution pt is counselled for washing hands with soap and water after using bathroom and before eating importance of continued isolation precaution /hand hygiene for at least 2-3 weeks beyond Abx therapy to prevent spread of infection /or reinfection to self GENERALIZED WEAKNESS/POOR APPETITE /NAUSEA due to above ordered for IVF pt requested for clear liquid diet , can be advanced as tolerated no bowel obstruction noted in xray of abdomen Pt/OT eval ( underlying malignancy /lives alone ) HX OF BREAST CA WITH BONE METS : Dx in 2002-invasive ductal CA s/p surgical lymphadenectomy s/p chemo and radiation tx developed sever back pain ; MRI of lumber spine suggestive of bone metastasis follows with Dr Maya in [place] and [facility] in [facility] pt is currently on Xgeva Q 3 months and Aromasin /Afinitor given active GI infection /C diff colitis immuno therapy Xgeva should be postponed ( pt not due till Aug ) cont Fentanyl patch , Neurontin /tramadol for chronic back pain due to bone mets ANEMIA OF CHRONIC DISEASE : due to metastatic malignancy pt denies of any dark stool or blood in stool Hb at approx baseline FULL CODE DVT PROPHYLAXIS : Moderate to high risk due to metastatic Breast CA sub q heparin DISPOSITION ; expected to be discharged home when medically stable Medicine follow up with Dr More at [facility] Follow up with Dr Maya /Gaetano Aguilar in [place] Level of Care Med/Surg Resuscitation Status FULL RESUSCITATION VTE Prophylaxis VTE Risk Assessment Done? Y/N: Yes Risk Level: Moderate Given or contraindicated: Melida Stockings, SCD's Additional Copies To Danii More M.D. (MEDICAL) Stevan Alarcon M.D.
[2017-06-16] MEDS ORDERED: ONDANSETRON INJ 2 MG/ML 2 ML VIAL IV PRN (23:30)
[2017-06-16] MEDS ORDERED: DENOSUMAB INJ SCH (23:30)
[2017-06-16] MEDS ORDERED: MAGNESIUM HYDROXIDE SUSP 30 ML UDC PO PRN (23:30)
[2017-06-16] MEDS ORDERED: IV FLUIDS COMPLETED PRN (23:30)
[2017-06-16] MEDS ORDERED: ALUMINUM/MAGNESIUM/SIMETH (MAALOX MAX) 30 ML UDC PO PRN (23:30)
[2017-06-16] MEDS ORDERED: NON-FORMULARY MEDICATION (Fentanyl 75 MCG) TOP SCH (23:30)
[2017-06-16] MEDS ORDERED: POLYETHYLENE (MIRALAX) 17 GM PACK PO PRN (23:30)
[2017-06-17 02:15] VITALS: BP 114/74; PULSE 90; TEMP 36.9; O2SAT 100
[2017-06-17] MEDS: GABAPENTIN 300 MG CAP PO SCH ×5 (04:51→20:38)
[2017-06-17] MEDS: D5W AND NSS 1,000 ML IV SCH ×2 (04:51→13:26)
[2017-06-17] MEDS: IBUPROFEN 200 MG TAB PO PRN (04:52)
[2017-06-17 06:59] LABS: HEMATOCRIT 28.9 % (37-47); MEAN CELL VOLUME 82.8 fL (80-100); MEAN CORPUSCULAR HEMOGLOBIN 26.4 pg (25-34); MEAN CORPUSCULAR HGB CONC 31.8 g/dl (32-36); PLATELET COUNT 111 K/uL (130-400); RED BLOOD COUNT 3.49 M/uL (4.2-5.4); WHITE BLOOD COUNT 7.37 K/uL (4.8-10.8)
[2017-06-17 07:23] LABS: INR 1.1 (0.9-1.1); PROTHROMBIN TIME (PATIENT) 12.3 SECONDS (9.0-12.0)
[2017-06-17 07:29] LABS: BUN/CREATININE RATIO 16.6 (10-20); CALCIUM 6.8 mg/dl (8.5-10.1); CREATININE 0.82 mg/dl (0.60-1.20); MAGNESIUM 1.8 mg/dl (1.8-2.4); POTASSIUM 3.2 mmol/L (3.5-5.1)
[2017-06-17 07:44] VITALS: BP 102/65; PULSE 80; TEMP 36.8; O2SAT 99
[2017-06-17] MEDS ORDERED: FENTANYL PATCH REMOVE & WASTE SCH ×2 (07:59→20:00)
[2017-06-17 08:00] VITALS: O2SAT 99
[2017-06-17] MEDS ORDERED: FENTANYL 75 MCG/HR TDSY TD SCH ×2 (08:00→20:00)
[2017-06-17] MEDS: CHECK FENTANYL PATCH PLACEMENT SCH ×2 (08:00→16:00)
[2017-06-17] MEDS: RESTASIS~ORDER AWAITING ACTION SCH ×3 (08:00→23:50)
[2017-06-17] MEDS ORDERED: METRONIDAZOLE 500 MG TAB PO SCH (08:00)
[2017-06-17] MEDS: CALCIUM 600MG + VIT D 400 IU TAB PO SCH ×2 (09:44→20:38)
[2017-06-17] MEDS: CEROVITE ADV FORMULA TAB PO SCH (09:45)
[2017-06-17] MEDS: VENLAFAXINE HCL XR 75 MG CAPXR PO SCH (09:45)
[2017-06-17] MEDS: VENLAFAXINE HCL XR 150 MG CAPXR PO SCH (09:45)
[2017-06-17] MEDS ORDERED: NURSING VERBAL MED ORDER ONE (09:45)
[2017-06-17] MEDS: PANTOprazole SOD 40 MG TAB PO SCH (09:46)
[2017-06-17] MEDS: DICYCLOMINE HCL 10 MG CAP PO SCH ×3 (09:46→20:38)
[2017-06-17] MEDS: POTASSIUM CHLR 10 MEQ / WTR 10 MEQ in PREMIXED WATER 100 ML IV SCH ×3 (09:47→11:56)
[2017-06-17] MEDS: VANCOMYCIN HCL 125 MG/2.5ML SOLN PO SCH ×4 (09:50→20:42)
[2017-06-17] MEDS: RASPBERRY SYRUP 5 ML UDP PO SCH ×4 (09:50→20:42)
[2017-06-17] MEDS: HEPARIN SOD 5000 UNIT/0.5 ML CARP SQ SCH ×3 (09:53→20:41)
[2017-06-17] MEDS ORDERED: POTASSIUM CHLORIDE 20 MEQ TABCR PO ONE (13:15)
--- NOTE | 2017-06-17 16:29 | Progress Note ---
Subjective Date of Service: Jun 17, 2017. Subjective Pt evaluation today including: conversation w/ patient, physical exam, lab review, review of studies, review of inpatient medication list Saw/examined the patient in room 454 C/o watery diarrhea since Tuesday currently on clears; nausea improving potassium infusion is burning, but otherwise, stable Problem List Medical Problems: (1) Cellulitis Status: Acute (2) Dehydration Status: Acute (3) Diarrhea Status: Acute (4) Metastatic breast cancer Status: Acute Review of Systems Constitutional: No fever, No chills Respiratory: No shortness of breath Cardiac: No chest pain Abdomen: + nausea, + diarrhea, No pain, No vomiting, No constipation, No GI bleeding Medications Current Inpatient Medications Medications (Trade) Dose Ordered Sig/Celine Route Start Time Stop Time Status Last Admin Dose Admin Bupropion HCl (Wellbutrin Tab) 150 mg QAM PO 06/17/17 08:00 07/17/17 08:59 06/17/17 09:44 150 MG Gabapentin (Neurontin Cap) 300 mg Q4H PO 06/17/17 04:00 07/17/17 03:59 06/17/17 11:57 300 MG Ibuprofen (Advil Tab) 200 mg Q4H PRN PO 06/16/17 23:30 07/16/17 23:29 06/17/17 04:52 200 MG Multivitamins/ Minerals (Multivitamin W/ Minerals Tab) 1 tab DAILY PO 06/17/17 08:00 07/17/17 08:59 06/17/17 09:45 1 TAB Tramadol HCl (Ultram Tab) 50 mg Q4 PRN PO 06/16/17 23:30 07/16/17 23:29 Venlafaxine HCl (effeXOR EXTENDED REL CAP) 75 mg QAM PO 06/17/17 08:00 07/17/17 08:59 06/17/17 09:45 75 MG Venlafaxine HCl (effeXOR EXTENDED REL CAP) 150 mg QAM PO 06/17/17 08:00 07/17/17 08:59 06/17/17 09:45 150 MG Calcium/Vitamin D (Caltrate Plus Tab) 1 tab BID PO 06/17/17 08:00 07/17/17 08:59 06/17/17 09:44 1 TAB Miscellaneous Information (Order Awaiting Action) 1 ea QS N/A 06/17/17 08:00 07/17/17 07:59 Miscellaneous Information (Order Awaiting Action) 1 ea QS N/A 06/17/17 08:00 07/17/17 07:59 Miscellaneous Information (Order Awaiting Action) 1 ea QS N/A 06/17/17 08:00 07/17/17 07:59 Miscellaneous (Iv Fluids Completed) 1 ea PRN PRN N/A 06/16/17 23:30 06/16/18 23:29 Heparin Sodium (Porcine) (Heparin Sq 5000 Unit/0.5ml) 5,000 unit Q8 SQ 06/17/17 08:00 07/17/17 07:59 06/17/17 09:53 5,000 UNIT Acetaminophen (Tylenol Tab) 650 mg Q4H PRN PO 06/16/17 23:30 07/16/17 23:29 Al Hydrox/Mg Hydrox/Simethicone (Maalox Max Susp) 15 ml Q4H PRN PO 06/16/17 23:30 07/16/17 23:29 Magnesium Hydroxide (Milk Of Magnesia Susp) 30 ml Q6H PRN PO 06/16/17 23:30 07/16/17 23:29 Polyethylene (Miralax Powder Packet) 17 gm DAILY PRN PO 06/16/17 23:30 07/16/17 23:29 Zolpidem Tartrate (Ambien Tab) 5 mg HSZ PRN PO 06/16/17 23:30 07/16/17 23:29 Ondansetron HCl (Zofran Inj) 4 mg Q6H PRN IV 06/16/17 23:30 07/16/17 23:29 06/17/17 09:54 4 MG Pantoprazole Sodium (Protonix Tab) 40 mg QAM PO 06/17/17 08:00 07/17/17 08:59 06/17/17 09:46 40 MG Dicyclomine HCl (Bentyl Cap) 10 mg TID PO 06/17/17 08:00 07/17/17 08:59 06/17/17 13:26 10 MG Dextrose/Sodium Chloride 1,000 ml @ 80 mls/hr [id number] IV 06/17/17 01:15 07/17/17 01:14 06/17/17 13:26 80 MLS/HR Miscellaneous Information (Check Fentanyl Patch Placement) 1 ea QS N/A 06/17/17 08:00 07/17/17 07:59 06/17/17 08:00 1 EA Vancomycin HCl (Vancomycin Oral Soln) 125 mg QID PO 06/17/17 08:30 07/01/17 08:29 06/17/17 11:56 125 MG Raspberry (Raspberry Syrup 5ml Cup) 5 ml QID PO 06/17/17 08:30 07/01/17 08:29 06/17/17 11:56 5 ML Fentanyl (Duragesic Patch) 75 mcg Q3D@1999 TD 06/17/17 20:00 07/01/17 19:59 Miscellaneous (Fentanyl Patch Remove & Waste) 1 ea Q3D@1999 N/A 06/17/17 20:00 07/17/17 19:59 Potassium Chloride (Klor-Con M10) 10 meq DAILY PO 06/18/17 08:00 07/18/17 07:59 Objective Vital Signs Date Time Temp Pulse Resp B/P (MAP) Pulse Ox O2 Delivery O2 Flow Rate FiO2 06/17/17 08:00 99 Room Air 06/17/17 07:44 36.8 80 18 102/65 (77) 99 Room Air 06/17/17 02:15 36.9 90 20 114/74 100 Room Air 06/17/17 00:07 84 18 113/62 98 06/16/17 22:10 83 18 102/58 98 Room Air 06/16/17 20:10 90 18 135/66 94 Room Air 06/16/17 19:01 75 18 103/57 98 Room Air 06/16/17 17:30 79 16 121/66 99 Room Air 06/16/17 15:44 36.9 105 16 105/68 96 Room Air Physical Exam General Appearance: no apparent distress Respiratory/Chest: no respiratory distress, no accessory muscle use Abdomen: non tender, soft, + abnormal bowel sounds (hyperactive bowel sounds) Laboratory Results Last 24 Hours Test 06/16/17 17:30 06/16/17 19:16 06/17/17 06:39 White Blood Count 8.40 K/uL 7.37 K/uL Red Blood Count 3.72 M/uL 3.49 M/uL Hemoglobin 9.8 g/dL 9.2 g/dL Hematocrit 30.9 % 28.9 % Mean Corpuscular Volume 83.1 fL 82.8 fL Mean Corpuscular Hemoglobin 26.3 pg 26.4 pg Mean Corpuscular Hemoglobin Concent 31.7 g/dl 31.8 g/dl Platelet Count 112 K/uL 111 K/uL Mean Platelet Volume 9.8 fL 10.0 fL Neutrophils (%) (Auto) 88.3 % Lymphocytes (%) (Auto) 5.2 % Monocytes (%) (Auto) 5.5 % Eosinophils (%) (Auto) 0.5 % Basophils (%) (Auto) 0.1 % Neutrophils # (Auto) 7.42 K/uL Lymphocytes # (Auto) 0.44 K/uL Monocytes # (Auto) 0.46 K/uL Eosinophils # (Auto) 0.04 K/uL Basophils # (Auto) 0.01 K/uL RDW Standard Deviation 42.8 fL 42.7 fL RDW Coefficient of Variation 14.0 % 14.1 % Immature Granulocyte % (Auto) 0.4 % Immature Granulocyte # (Auto) 0.03 K/uL Sodium Level 139 mmol/L 141 mmol/L Potassium Level 3.6 mmol/L 3.2 mmol/L Chloride Level 107 mmol/L 111 mmol/L Carbon Dioxide Level 25 mmol/L 22 mmol/L Anion Gap 7.0 mmol/L 8.0 mmol/L Blood Urea Nitrogen 16 mg/dl 14 mg/dl Creatinine 1.00 mg/dl 0.82 mg/dl Est Creatinine Clear Calc Drug Dose 47.9 ml/min 58.4 ml/min Estimated GFR () 73.5 93.4 Estimated GFR (Non- 63.4 80.6 BUN/Creatinine Ratio 16.3 16.6 Random Glucose 87 mg/dl 122 mg/dl Lactic Acid Level 0.8 mmol/L Calcium Level 8.0 mg/dl 6.8 mg/dl Magnesium Level 2.1 mg/dl 1.8 mg/dl Total Bilirubin 0.3 mg/dl Aspartate Amino Transf (AST/SGOT) 27 U/L Alanine Aminotransferase (ALT/SGPT) 21 U/L Alkaline Phosphatase 73 U/L Total Protein 6.7 gm/dl Albumin 2.7 gm/dl Globulin 4.0 gm/dl Albumin/Globulin Ratio 0.7 Lipase 46 U/L Urine Color YELLOW Urine Appearance CLEAR Urine pH 5.0 Urine Specific [place] 1.021 Urine Protein 3+ Urine Glucose (UA) NEG Urine Ketones 3+ Urine Occult Blood 2+ Urine Nitrite NEG Urine Bilirubin NEG Urine Urobilinogen NEG Urine Leukocyte Esterase NEG Urine WBC (Auto) 1-5 /hpf Urine RBC (Auto) 0-4 /hpf Urine Hyaline Casts (Auto) 10-30 /lpf Urine Epithelial Cells (Auto) >30 /lpf Urine Bacteria (Auto) 2+ Urine Renal Epithelial Cells /lpf Urine Pathogenic Casts 5-10 GRANULAR CASTS /lpf Urine Yeast (Auto) BUDDING Prothrombin Time 12.3 SECONDS Prothromb Time International Ratio 1.1 Assessment and Plan This is a 56 year old female with a PMH of recurrent and metastatic breast CA, anemia of chronic disease, depression presents with C. Diff C. Diff Colitis patient had a recent tooth extraction was d/c'd on Clindamycin her last dose of Clindamycin was on June 13 She developed diarrhea, weakness, nausea, etc. Tuesday night presented here on 06/16 and found to have c. diff started on PO Vanco 125 QID [id number] this is her first episode - though she is immunocompromised with cancer and previous chemo and current ongoing immunomodulator therapy so she may need a longer course if she does not improve replace K and check K and Mg in AM Hx. of Metastatic Breast CA pain controlled, mets to the lumbar spine has undergone resection and chemo/radiation in the past currently receives Xgeva q3 months (next dose is in August or September) Anemia of Chronic Disease monitor H/H DVT ppx subq heparin FULL CODE likely d/c on 06/18 if K and Mg look okay and if not dehydrated
[2017-06-17] MEDS: ZOLPIDEM TARTRATE 5 MG TAB PO PRN (23:19)
[2017-06-17 23:36] VITALS: BP 103/70; PULSE 87; TEMP 37; O2SAT 98
[2017-06-18] VITALS: O2SAT 99
[2017-06-18] MEDS: GABAPENTIN 300 MG CAP PO SCH ×7 (00:39→23:46)
[2017-06-18] MEDS: CHECK FENTANYL PATCH PLACEMENT SCH ×4 (00:39→22:43)
[2017-06-18] MEDS: D5W AND NSS 1,000 ML IV SCH ×3 (02:11→23:46)
[2017-06-18] MEDS: HEPARIN SOD 5000 UNIT/0.5 ML CARP SQ SCH ×4 (04:58→23:46)
[2017-06-18] MEDS: RESTASIS~ORDER AWAITING ACTION SCH ×3 (07:10→22:43)
[2017-06-18 08:00] VITALS: O2SAT 94
[2017-06-18 08:05] VITALS: BP 94/60; PULSE 82; TEMP 37.4; O2SAT 94
[2017-06-18] MEDS: RASPBERRY SYRUP 5 ML UDP PO SCH ×4 (08:14→20:20)
[2017-06-18] MEDS: VANCOMYCIN HCL 125 MG/2.5ML SOLN PO SCH ×4 (08:14→20:21)
[2017-06-18] MEDS: VENLAFAXINE HCL XR 75 MG CAPXR PO SCH (08:15)
[2017-06-18] MEDS: POTASSIUM CHLORIDE 10 MEQ TABCR PO SCH (08:15)
[2017-06-18] MEDS: PANTOprazole SOD 40 MG TAB PO SCH (08:15)
[2017-06-18] MEDS: VENLAFAXINE HCL XR 150 MG CAPXR PO SCH (08:15)
[2017-06-18] MEDS: CEROVITE ADV FORMULA TAB PO SCH (08:15)
[2017-06-18] MEDS: DICYCLOMINE HCL 10 MG CAP PO SCH ×3 (08:15→20:20)
[2017-06-18] MEDS: CALCIUM 600MG + VIT D 400 IU TAB PO SCH ×2 (08:15→20:20)
[2017-06-18 09:43] LABS: HEMATOCRIT 30.4 % (37-47); MEAN CELL VOLUME 82.4 fL (80-100); MEAN CORPUSCULAR HEMOGLOBIN 25.5 pg (25-34); MEAN CORPUSCULAR HGB CONC 30.9 g/dl (32-36); MEAN PLATELET VOLUME 10.3 fL (7.4-10.4); PLATELET COUNT 146 K/uL (130-400); RED BLOOD COUNT 3.69 M/uL (4.2-5.4); WHITE BLOOD COUNT 5.39 K/uL (4.8-10.8)
[2017-06-18 10:49] LABS: BUN/CREATININE RATIO 5.5 (10-20); CREATININE 0.82 mg/dl (0.60-1.20); MAGNESIUM 1.7 mg/dl (1.8-2.4); POTASSIUM 3.1 mmol/L (3.5-5.1)
[2017-06-18] MEDS ORDERED: MAG SULFATE 50% INJ 4 GM in SODIUM CHLORIDE 0.9% 500ML 500 ML IV ONE (12:15)
[2017-06-18] MEDS ORDERED: POTASSIUM CHLORIDE 10 MEQ TABCR PO STA (12:22)
[2017-06-18] MEDS ORDERED: MAGNESIUM SULFATE 1GM / D5W 1 GM in PREMIXED IN D5W 100 ML IV STA (12:23)
[2017-06-18] MEDS: POTASSIUM CHLORIDE 20 MEQ TABCR PO SCH ×2 (12:50→16:32)
--- NOTE | 2017-06-18 12:59 | Progress Note ---
Subjective Date of Service: Jun 18, 2017. Subjective Pt evaluation today including: conversation w/ patient, physical exam, lab review, review of studies, review of inpatient medication list Saw/examined the patient in room 454 Still having diarrhea +weakness with ambulation Problem List Medical Problems: (1) Cellulitis Status: Acute (2) Dehydration Status: Acute (3) Diarrhea Status: Acute (4) Metastatic breast cancer Status: Acute Review of Systems Constitutional: + weakness, No fever, No chills Respiratory: No shortness of breath Cardiac: No chest pain Abdomen: + diarrhea, No pain, No nausea, No vomiting Medications Current Inpatient Medications Medications (Trade) Dose Ordered Sig/Celine Route Start Time Stop Time Status Last Admin Dose Admin Bupropion HCl (Wellbutrin Tab) 150 mg QAM PO 06/17/17 08:00 07/17/17 08:59 06/18/17 08:15 150 MG Gabapentin (Neurontin Cap) 300 mg Q4H PO 06/17/17 04:00 07/17/17 03:59 06/18/17 08:14 300 MG Ibuprofen (Advil Tab) 200 mg Q4H PRN PO 06/16/17 23:30 07/16/17 23:29 06/17/17 04:52 200 MG Multivitamins/ Minerals (Multivitamin W/ Minerals Tab) 1 tab DAILY PO 06/17/17 08:00 07/17/17 08:59 06/18/17 08:15 1 TAB Tramadol HCl (Ultram Tab) 50 mg Q4 PRN PO 06/16/17 23:30 07/16/17 23:29 Venlafaxine HCl (effeXOR EXTENDED REL CAP) 75 mg QAM PO 06/17/17 08:00 07/17/17 08:59 06/18/17 08:15 75 MG Venlafaxine HCl (effeXOR EXTENDED REL CAP) 150 mg QAM PO 06/17/17 08:00 07/17/17 08:59 06/18/17 08:15 150 MG Calcium/Vitamin D (Caltrate Plus Tab) 1 tab BID PO 06/17/17 08:00 07/17/17 08:59 06/18/17 08:15 1 TAB Miscellaneous Information (Order Awaiting Action) 1 ea QS N/A 06/17/17 08:00 07/17/17 07:59 Miscellaneous Information (Order Awaiting Action) 1 ea QS N/A 06/17/17 08:00 07/17/17 07:59 Miscellaneous Information (Order Awaiting Action) 1 ea QS N/A 06/17/17 08:00 07/17/17 07:59 Miscellaneous (Iv Fluids Completed) 1 ea PRN PRN N/A 06/16/17 23:30 06/16/18 23:29 Heparin Sodium (Porcine) (Heparin Sq 5000 Unit/0.5ml) 5,000 unit Q8 SQ 06/17/17 08:00 07/17/17 07:59 06/18/17 04:58 5,000 UNIT Acetaminophen (Tylenol Tab) 650 mg Q4H PRN PO 06/16/17 23:30 07/16/17 23:29 Al Hydrox/Mg Hydrox/Simethicone (Maalox Max Susp) 15 ml Q4H PRN PO 06/16/17 23:30 07/16/17 23:29 Magnesium Hydroxide (Milk Of Magnesia Susp) 30 ml Q6H PRN PO 06/16/17 23:30 07/16/17 23:29 Polyethylene (Miralax Powder Packet) 17 gm DAILY PRN PO 06/16/17 23:30 07/16/17 23:29 Zolpidem Tartrate (Ambien Tab) 5 mg HSZ PRN PO 06/16/17 23:30 07/16/17 23:29 06/17/17 23:19 5 MG Ondansetron HCl (Zofran Inj) 4 mg Q6H PRN IV 06/16/17 23:30 07/16/17 23:29 06/17/17 09:54 4 MG Pantoprazole Sodium (Protonix Tab) 40 mg QAM PO 06/17/17 08:00 07/17/17 08:59 06/18/17 08:15 40 MG Dicyclomine HCl (Bentyl Cap) 10 mg TID PO 06/17/17 08:00 07/17/17 08:59 06/18/17 08:15 10 MG Dextrose/Sodium Chloride 1,000 ml @ 80 mls/hr [id number] IV 06/17/17 01:15 07/17/17 01:14 06/18/17 02:11 80 MLS/HR Miscellaneous Information (Check Fentanyl Patch Placement) 1 ea QS N/A 06/17/17 08:00 07/17/17 07:59 06/18/17 08:18 1 EA Vancomycin HCl (Vancomycin Oral Soln) 125 mg QID PO 06/17/17 08:30 07/01/17 08:29 06/18/17 08:14 125 MG Raspberry (Raspberry Syrup 5ml Cup) 5 ml QID PO 06/17/17 08:30 07/01/17 08:29 06/18/17 08:14 5 ML Fentanyl (Duragesic Patch) 75 mcg Q3D@2000 TD 06/17/17 20:00 07/01/17 19:59 06/17/17 20:42 75 MCG Miscellaneous (Fentanyl Patch Remove & Waste) 1 ea Q3D@2000 N/A 06/17/17 20:00 07/17/17 19:59 06/17/17 20:00 1 EA Potassium Chloride (Klor-Con M10) 10 meq DAILY PO 06/18/17 08:00 07/18/17 07:59 06/18/17 08:15 10 MEQ Magnesium Sulfate 4 gm/Sodium Chloride 508 ml @ 125 mls/hr Q4H4M ONCE IV 06/18/17 12:15 06/18/17 16:18 Potassium Chloride (Klor-Con Tab) 40 meq Q4H PO 06/18/17 11:30 06/18/17 15:31 Objective Vital Signs Date Time Temp Pulse Resp B/P (MAP) Pulse Ox O2 Delivery O2 Flow Rate FiO2 06/18/17 08:05 37.4 82 16 94/60 (71) 94 Room Air 06/18/17 08:00 94 Room Air 06/18/17 00:00 99 Room Air 06/17/17 23:36 37.0 87 16 103/70 (81) 98 Room Air 06/17/17 16:00 Room Air Physical Exam General Appearance: no apparent distress Respiratory/Chest: lungs clear, normal breath sounds, no respiratory distress, no accessory muscle use Cardiovascular: regular rate, rhythm, no edema, no murmur Abdomen: non tender, soft, + abnormal bowel sounds (hyperactive bowel sounds) Laboratory Results Last 24 Hours Test 06/18/17 09:00 White Blood Count 5.39 K/uL Red Blood Count 3.69 M/uL Hemoglobin 9.4 g/dL Hematocrit 30.4 % Mean Corpuscular Volume 82.4 fL Mean Corpuscular Hemoglobin 25.5 pg Mean Corpuscular Hemoglobin Concent 30.9 g/dl RDW Standard Deviation 43.2 fL RDW Coefficient of Variation 14.3 % Platelet Count 146 K/uL Mean Platelet Volume 10.3 fL Sodium Level 144 mmol/L Potassium Level 3.1 mmol/L Chloride Level 113 mmol/L Carbon Dioxide Level 24 mmol/L Anion Gap 7.0 mmol/L Blood Urea Nitrogen 5 mg/dl Creatinine 0.82 mg/dl Est Creatinine Clear Calc Drug Dose 58.4 ml/min Estimated GFR () 93.4 Estimated GFR (Non- 80.6 BUN/Creatinine Ratio 5.5 Random Glucose 117 mg/dl Calcium Level 7.0 mg/dl Magnesium Level 1.7 mg/dl Assessment and Plan This is a 56 year old female with a PMH of recurrent and metastatic breast CA, anemia of chronic disease, depression presents with C. Diff C. Diff Colitis 06/18 Plan today is to replete the K and the Mg continue Vanco PO for a total of 2 weeks increase the fluid rate slightly 06/17 patient had a recent tooth extraction was d/c'd on Clindamycin her last dose of Clindamycin was on June 13 She developed diarrhea, weakness, nausea, etc. Tuesday night presented here on 06/16 and found to have c. diff started on PO Vanco 125 QID [id number] this is her first episode - though she is immunocompromised with cancer and previous chemo and current ongoing immunomodulator therapy so she may need a longer course if she does not improve replace K and check K and Mg in AM Hx. of Metastatic Breast CA pain controlled, mets to the lumbar spine has undergone resection and chemo/radiation in the past currently receives Xgeva q3 months (next dose is in August or September) Anemia of Chronic Disease monitor H/H DVT ppx subq heparin FULL CODE
[2017-06-18 14:48] VITALS: BP 93/58; PULSE 86; TEMP 37; O2SAT 98
[2017-06-18 20:00] VITALS: O2SAT 99
[2017-06-18] MEDS: IBUPROFEN 200 MG TAB PO PRN (21:35)
[2017-06-18 23:00] VITALS: BP 83/55; PULSE 76; TEMP 36.9; O2SAT 96
[2017-06-19] VITALS: O2SAT 99
[2017-06-19] MEDS: GABAPENTIN 300 MG CAP PO SCH ×5 (04:57→19:39)
[2017-06-19] MEDS: IBUPROFEN 200 MG TAB PO PRN (06:05)
[2017-06-19] MEDS: RESTASIS~ORDER AWAITING ACTION SCH ×2 (07:18→15:03)
[2017-06-19] MEDS ORDERED: NURSING VERBAL MED ORDER ONE (07:30)
[2017-06-19 07:51] VITALS: BP 94/59; PULSE 84; TEMP 36.6; O2SAT 100
[2017-06-19 07:51] LABS: HEMATOCRIT 25.5 % (37-47); MEAN CELL VOLUME 80.7 fL (80-100); MEAN CORPUSCULAR HEMOGLOBIN 26.6 pg (25-34); MEAN CORPUSCULAR HGB CONC 32.9 g/dl (32-36); MEAN PLATELET VOLUME 10.1 fL (7.4-10.4); PLATELET COUNT 126 K/uL (130-400); RED BLOOD COUNT 3.16 M/uL (4.2-5.4); WHITE BLOOD COUNT 3.35 K/uL (4.8-10.8)
[2017-06-19 08:00] VITALS: O2SAT 100
[2017-06-19] MEDS: VENLAFAXINE HCL XR 150 MG CAPXR PO SCH (08:31)
[2017-06-19] MEDS: DICYCLOMINE HCL 10 MG CAP PO SCH ×3 (08:31→19:39)
[2017-06-19] MEDS: PANTOprazole SOD 40 MG TAB PO SCH (08:31)
[2017-06-19] MEDS: CALCIUM 600MG + VIT D 400 IU TAB PO SCH ×2 (08:31→19:39)
[2017-06-19] MEDS: CEROVITE ADV FORMULA TAB PO SCH (08:31)
[2017-06-19] MEDS: VANCOMYCIN HCL 125 MG/2.5ML SOLN PO SCH ×4 (08:32→19:40)
[2017-06-19] MEDS: CHECK FENTANYL PATCH PLACEMENT SCH ×2 (08:32→15:26)
[2017-06-19] MEDS: RASPBERRY SYRUP 5 ML UDP PO SCH ×4 (08:32→19:40)
[2017-06-19] MEDS: VENLAFAXINE HCL XR 75 MG CAPXR PO SCH (08:32)
[2017-06-19 08:46] LABS: BUN/CREATININE RATIO 3.1 (10-20); CALCIUM 6.6 mg/dl (8.5-10.1); CREATININE 0.64 mg/dl (0.60-1.20); MAGNESIUM 2.7 mg/dl (1.8-2.4); POTASSIUM 3.9 mmol/L (3.5-5.1)
[2017-06-19] MEDS: POTASSIUM CHLORIDE 10 MEQ TABCR PO SCH (09:29)
[2017-06-19] MEDS: D5W AND NSS 1,000 ML IV SCH (09:29)
[2017-06-19] MEDS ORDERED: ATV/1 PO (10:50)
[2017-06-19] MEDS ORDERED: ARTIFICIAL TEARS OP SOLN OPB PRN ×2 (11:00)
[2017-06-19] MEDS ORDERED: LORAZEPAM 1 MG TAB PO PRN (11:00)
[2017-06-19] MEDS ORDERED: CALCIUM GLUCONATE 10% 2,000 MG in SODIUM CHLORIDE 0.9% 50ML 50 ML IV ONE (11:00)
[2017-06-19] MEDS ORDERED: HOME MED ADMINISTRATION SCH (11:00)
--- NOTE | 2017-06-19 11:04 | Progress Note ---
Medicine Progress Note Date & Time of Visit: Jun 19, 2017 at 10:53. Subjective tolerating clears, ok with attempting to advance diet chronic pain is present several BMs yesterday mostly after eating we discussed what cdiff is, how it is spread, and when she is no longer considered contagious as well as how to prevent it. Objective Last 8 Hrs Date Time Temp Pulse Resp B/P (MAP) Pulse Ox O2 Delivery O2 Flow Rate FiO2 06/19/17 08:00 100 Room Air 06/19/17 07:51 36.6 84 16 94/59 (71) 100 Room Air Physical Exam: GEN: WNWD, in no acute distress, alert and appropriate HEENT: NC/AT, normal sclerae, dry mouth CARDIO: reg rate, S1/2 heard without m/g/r LUNGS: CTA bilaterally, no crackles, rales or wheezes, good diaphragmatic excursion ABD: soft, diffuse mild tenderness, non-distended, no rebound or guarding, +BS EXTREMITY: RP and DP palpable 2+ bilat, no LE swelling or edema, extremities are warm and well-perfused NEURO: CN 2-12 grossly intact, no gross focal deficits. MUSC: 5/5 strength throughout, no focal deficits, ambulatory SKIN: warm and dry, some ecchymosis around injection site in RLQ of abdomen, no hematoma or fluctuant area noted. Laboratory Results: 06/19/17 07:16 06/19/17 07:16 Test 06/16/17 17:30 06/16/17 19:16 06/17/17 06:39 06/19/17 07:16 Immature Granulocyte % (Auto) 0.4 % White Blood Count 8.40 K/uL (4.8-10.8) Red Blood Count 3.72 M/uL (4.2-5.4) 3.16 M/uL (4.2-5.4) Hemoglobin 9.8 g/dL (12.0-16.0) Hematocrit 30.9 % (37-47) Mean Corpuscular Volume 83.1 fL (80-100) 80.7 fL (80-100) Mean Corpuscular Hemoglobin 26.3 pg (25-34) 26.6 pg (25-34) Mean Corpuscular Hemoglobin Concent 31.7 g/dl (32-36) 32.9 g/dl (32-36) Platelet Count 112 K/uL (130-400) Mean Platelet Volume 9.8 fL (7.4-10.4) 10.1 fL (7.4-10.4) Neutrophils (%) (Auto) 88.3 % Lymphocytes (%) (Auto) 5.2 % Monocytes (%) (Auto) 5.5 % Eosinophils (%) (Auto) 0.5 % Basophils (%) (Auto) 0.1 % Neutrophils # (Auto) 7.42 K/uL (1.4-6.5) Lymphocytes # (Auto) 0.44 K/uL (1.2-3.4) Monocytes # (Auto) 0.46 K/uL (0.11-0.59) Eosinophils # (Auto) 0.04 K/uL (0-0.5) Basophils # (Auto) 0.01 K/uL (0-0.2) Immature Granulocyte # (Auto) 0.03 K/uL (0.00-0.02) Lactic Acid Level 0.8 mmol/L (0.4-2.0) Total Bilirubin 0.3 mg/dl (0.2-1) Aspartate Amino Transf (AST/SGOT) 27 U/L (15-37) Alanine Aminotransferase (ALT/SGPT) 21 U/L (12-78) Alkaline Phosphatase 73 U/L (45-117) Total Protein 6.7 gm/dl (6.4-8.2) Albumin 2.7 gm/dl (3.4-5.0) Globulin 4.0 gm/dl (2.5-4.0) Albumin/Globulin Ratio 0.7 (0.9-2) Lipase 46 U/L (73-393) Urine Color YELLOW Urine Appearance CLEAR (CLEAR) Urine pH 5.0 (4.5-7.5) Urine Specific Reynolds 1.021 (1.000-1.030) Urine Protein 3+ (NEG) Urine Glucose (UA) NEG (NEG) Urine Ketones 3+ (NEG) Urine Occult Blood 2+ (NEG) Urine Nitrite NEG (NEG) Urine Bilirubin NEG (NEG) Urine Urobilinogen NEG (NEG) Urine Leukocyte Esterase NEG (NEG) Urine WBC (Auto) 1-5 /hpf (0-5) Urine RBC (Auto) 0-4 /hpf (0-4) Urine Hyaline Casts (Auto) 10-30 /lpf (0-5) Urine Epithelial Cells (Auto) >30 /lpf (0-5) Urine Bacteria (Auto) 2+ (NEG) Urine Renal Epithelial Cells /lpf (0-5) Urine Pathogenic Casts 5-10 GRANULAR CASTS /lpf (0) Urine Yeast (Auto) BUDDING (NONE PRSENT) Prothrombin Time 12.3 SECONDS (9.0-12.0) Prothromb Time International Ratio 1.1 (0.9-1.1) RDW Standard Deviation 42.9 fL (36.4-46.3) RDW Coefficient of Variation 14.5 % (11.5-14.5) Anion Gap 5.0 mmol/L (3-11) Est Creatinine Clear Calc Drug Dose 74.9 ml/min Estimated GFR () 116.4 Estimated GFR (Non- 100.5 BUN/Creatinine Ratio 3.1 (10-20) Calcium Level 6.6 mg/dl (8.5-10.1) Magnesium Level 2.7 mg/dl (1.8-2.4) Date/Time Source Procedure Growth Status 06/16/17 19:16 Stool C.difficile Toxin B Gene (PCR) - Final Positive for C. difficile toxin B gene Complete 06/16/17 19:16 Urine , Clean Catch Urine Culture - Final MORE THAN THREE TYPES OF ORGANISMS MS... Complete Last 24 Hours Test 06/19/17 07:16 White Blood Count 3.35 K/uL Red Blood Count 3.16 M/uL Hemoglobin 8.4 g/dL Hematocrit 25.5 % Mean Corpuscular Volume 80.7 fL Mean Corpuscular Hemoglobin 26.6 pg Mean Corpuscular Hemoglobin Concent 32.9 g/dl RDW Standard Deviation 42.9 fL RDW Coefficient of Variation 14.5 % Platelet Count 126 K/uL Mean Platelet Volume 10.1 fL Sodium Level 144 mmol/L Potassium Level 3.9 mmol/L Chloride Level 116 mmol/L Carbon Dioxide Level 23 mmol/L Anion Gap 5.0 mmol/L Blood Urea Nitrogen 2 mg/dl Creatinine 0.64 mg/dl Est Creatinine Clear Calc Drug Dose 74.9 ml/min Estimated GFR () 116.4 Estimated GFR (Non- 100.5 BUN/Creatinine Ratio 3.1 Random Glucose 92 mg/dl Calcium Level 6.6 mg/dl Magnesium Level 2.7 mg/dl Assessment & Plan This is a 56 year old female with a PMH of recurrent and metastatic breast CA, anemia of chronic disease, depression presents with C. Diff 1. C-diff diarrhea-lytes stable, still with several bowel movements daily. Taking Bentyl. Instructed to avoid milk/dairy. Advancing diet to regular food. Stopped IVF. Cont Vanco PO. Given instruction on pathophysiology and community health related to c-diff. Answered all questions to her satisfaction. 2. metastatic breast cancer-some bleeding around site of heparin injection, likely related to this in conjunction with Ibuprofen use. will hold on injection today and restart Lovenox tomorrow morning. Home meds brought in and order given to continue these including Aromasin and Xfinitor. Pain controlled with gabapentin, fentanyl, tramadol and tylenol. Holding Ibuprofen for the time being. 3. Anemia of chronic disease-some dilutional component present likely related to 4 days of IVF. Also has metastatic breast cancer on treatment. DVT ppx-holding for now with bruising/bleeding at injection site in setting of ibuprofen use. Will restart with Lovenox in am. FULL CODE Dispo-to home Anny Santos DO [facility] Hospitalist Current Inpatient Medications: Current Inpatient Medications Medications (Trade) Dose Ordered Sig/Celine Route Start Time Stop Time Status Last Admin Dose Admin Bupropion HCl (Wellbutrin Tab) 150 mg QAM PO 06/17/17 08:00 07/17/17 08:59 06/19/17 08:31 150 MG Multivitamins/ Minerals (Multivitamin W/ Minerals Tab) 1 tab DAILY PO 06/17/17 08:00 07/17/17 08:59 06/19/17 08:31 1 TAB Tramadol HCl (Ultram Tab) 50 mg Q4 PRN PO 06/16/17 23:30 07/16/17 23:29 Venlafaxine HCl (effeXOR EXTENDED REL CAP) 75 mg QAM PO 06/17/17 08:00 07/17/17 08:59 06/19/17 08:32 75 MG Venlafaxine HCl (effeXOR EXTENDED REL CAP) 150 mg QAM PO 06/17/17 08:00 07/17/17 08:59 06/19/17 08:31 150 MG Calcium/Vitamin D (Caltrate Plus Tab) 1 tab BID PO 06/17/17 08:00 07/17/17 08:59 06/19/17 08:31 1 TAB Miscellaneous Information (Order Awaiting Action) 1 ea QS N/A 06/17/17 08:00 07/17/17 07:59 Miscellaneous Information (Order Awaiting Action) 1 ea QS N/A 06/17/17 08:00 07/17/17 07:59 Miscellaneous Information (Order Awaiting Action) 1 ea QS N/A 06/17/17 08:00 07/17/17 07:59 Miscellaneous (Iv Fluids Completed) 1 ea PRN PRN N/A 06/16/17 23:30 06/16/18 23:29 Acetaminophen (Tylenol Tab) 650 mg Q4H PRN PO 06/16/17 23:30 07/16/17 23:29 Al Hydrox/Mg Hydrox/Simethicone (Maalox Max Susp) 15 ml Q4H PRN PO 06/16/17 23:30 07/16/17 23:29 Magnesium Hydroxide (Milk Of Magnesia Susp) 30 ml Q6H PRN PO 06/16/17 23:30 07/16/17 23:29 Polyethylene (Miralax Powder Packet) 17 gm DAILY PRN PO 06/16/17 23:30 07/16/17 23:29 Zolpidem Tartrate (Ambien Tab) 5 mg HSZ PRN PO 06/16/17 23:30 07/16/17 23:29 06/17/17 23:19 5 MG Ondansetron HCl (Zofran Inj) 4 mg Q6H PRN IV 06/16/17 23:30 07/16/17 23:29 06/17/17 09:54 4 MG Pantoprazole Sodium (Protonix Tab) 40 mg QAM PO 06/17/17 08:00 07/17/17 08:59 06/19/17 08:31 40 MG Dicyclomine HCl (Bentyl Cap) 10 mg TID PO 06/17/17 08:00 07/17/17 08:59 06/19/17 08:31 10 MG Miscellaneous Information (Check Fentanyl Patch Placement) 1 ea QS N/A 06/17/17 08:00 07/17/17 07:59 06/19/17 08:32 1 EA Vancomycin HCl (Vancomycin Oral Soln) 125 mg QID PO 06/17/17 08:30 07/01/17 08:29 06/19/17 08:32 125 MG Raspberry (Raspberry Syrup 5ml Cup) 5 ml QID PO 06/17/17 08:30 07/01/17 08:29 06/19/17 08:32 5 ML Fentanyl (Duragesic Patch) 75 mcg Q3D@1999 TD 06/17/17 20:00 07/01/17 19:59 06/17/17 20:42 75 MCG Miscellaneous (Fentanyl Patch Remove & Waste) 1 ea Q3D@1999 N/A 06/17/17 20:00 07/17/17 19:59 06/17/17 20:00 1 EA Potassium Chloride (Klor-Con M10) 10 meq DAILY PO 06/18/17 08:00 07/18/17 07:59 06/19/17 09:29 10 MEQ Calcium Gluconate 2000 mg/Sodium Chloride 70 ml @ 240 mls/hr NOW ONCE IV 06/19/17 11:00 06/19/17 11:17 Gabapentin (Neurontin Cap) 300 mg QID PO 06/19/17 12:00 07/17/17 03:59 UNV Enoxaparin Sodium (Lovenox Inj) 40 mg QAM SQ 06/20/17 08:00 07/20/17 07:59 UNV Lorazepam (Ativan Tab) 1 mg Q6H PRN PO 06/19/17 11:00 07/19/17 10:59 UNV
[2017-06-19] MEDS: EVEROLIMUS 10 MG PO SCH (13:41)
[2017-06-19] MEDS: EXEMESTANE 25 MG PO SCH (13:49)
[2017-06-19] MEDS: TRAMADOL HCL 50 MG TAB PO PRN ×2 (13:54→21:05)
[2017-06-19] MEDS: ACETAMINOPHEN 325 MG TAB PO PRN ×2 (15:26→21:05)
[2017-06-19 15:41] VITALS: BP 86/53; PULSE 84; TEMP 36.7; O2SAT 100
[2017-06-19 22:53] VITALS: BP 132/62; PULSE 81; TEMP 37.2; O2SAT 97
[2017-06-20] MEDS: RESTASIS~ORDER AWAITING ACTION SCH ×3 (01:00→16:00)
[2017-06-20] MEDS: CHECK FENTANYL PATCH PLACEMENT SCH ×3 (01:00→16:02)
[2017-06-20] MEDS: ZOLPIDEM TARTRATE 5 MG TAB PO PRN (01:17)
[2017-06-20 07:08] LABS: MEAN CELL VOLUME 80.6 fL (80-100); MEAN CORPUSCULAR HEMOGLOBIN 26.5 pg (25-34); MEAN CORPUSCULAR HGB CONC 32.8 g/dl (32-36); MEAN PLATELET VOLUME 10.3 fL (7.4-10.4); PLATELET COUNT 156 K/uL (130-400)
[2017-06-20 07:36] VITALS: PULSE 89; TEMP 36.8; O2SAT 95
[2017-06-20 07:47] LABS: BUN/CREATININE RATIO 4.7 (10-20); CALCIUM 7.9 mg/dl (8.5-10.1); CREATININE 0.75 mg/dl (0.60-1.20); MAGNESIUM 2.1 mg/dl (1.8-2.4); POTASSIUM 4.2 mmol/L (3.5-5.1)
[2017-06-20 07:52] VITALS: BP 106/66
[2017-06-20 08:00] VITALS: O2SAT 95
[2017-06-20] MEDS ORDERED: ENOXAPARIN 30 MG/0.3 ML SYR SQ SCH (08:00)
[2017-06-20] MEDS: DICYCLOMINE HCL 10 MG CAP PO SCH ×2 (08:35→13:13)
[2017-06-20] MEDS: VENLAFAXINE HCL XR 150 MG CAPXR PO SCH (08:36)
[2017-06-20] MEDS: VENLAFAXINE HCL XR 75 MG CAPXR PO SCH (08:36)
[2017-06-20] MEDS: PANTOprazole SOD 40 MG TAB PO SCH (08:36)
[2017-06-20] MEDS: VANCOMYCIN HCL 125 MG/2.5ML SOLN PO SCH ×3 (08:36→16:08)
[2017-06-20] MEDS: GABAPENTIN 300 MG CAP PO SCH ×3 (08:36→16:07)
[2017-06-20] MEDS: CEROVITE ADV FORMULA TAB PO SCH (08:36)
[2017-06-20] MEDS: CALCIUM 600MG + VIT D 400 IU TAB PO SCH (08:36)
[2017-06-20] MEDS: POTASSIUM CHLORIDE 10 MEQ TABCR PO SCH (08:36)
[2017-06-20] MEDS: RASPBERRY SYRUP 5 ML UDP PO SCH ×3 (08:36→16:07)
[2017-06-20] MEDS: EVEROLIMUS 10 MG PO SCH (08:37)
[2017-06-20] MEDS: EXEMESTANE 25 MG PO SCH (08:37)
[2017-06-20] MEDS: TRAMADOL HCL 50 MG TAB PO PRN (08:48)
--- NOTE | 2017-06-20 10:07 | DIAGNOSTIC IMAGING REPORT ---
BILATERAL LOWER EXTREMITY VENOUS DOPPLER HISTORY: legs appear more swollen, has active malignancy, high risk COMPARISON STUDY: None. FINDINGS: There is normal compressibility, flow, and augmentation within the bilateral lower extremity deep venous systems. IMPRESSION: No DVT within the right or left lower extremity. Electronically signed by: Malik Hagen M.D. 06/20/2017 10:05 AM Dictated Date/Time: 06/20/2017 10:05 AM
[2017-06-20 10:32] VITALS: BP 103/68; PULSE 85; O2SAT 98
[2017-06-20 15:17] VITALS: BP 93/60; PULSE 87; TEMP 37.1; O2SAT 95
--- NOTE | 2017-06-20 15:40 | Discharge Instructions ---
Discharge Instructions Date of Service Jun 20, 2017. Admission Reason for Admission: C. Difficile Diarrhea Discharge Discharge Diagnosis / Problem: c-diff diarrhea Discharge Goals Goal(s): Prevent Disease Progression Activity Recommendations Activity Limitations: per Instructions/Follow-up section . Instructions / Follow-Up Instructions / Follow-Up Please take all medications as instructed. You have a follow-up appointment with Dr More on 06/23 @ 1100 for follow-up from this hospitalization. Please bring all paperwork from discharge. For more information about c-diff please go to this website: https:// www.cdc.gov/marlon/organisms/cdiff/cdiff-patient.html It was a pleasure taking care of you! Call if you have any questions or problems. You can reach a [facility] hospitalist on duty at [facility] 24 hours a day by calling [phone]. Take care of yourself. Anny Santos, [facility] Hospitalist Current Hospital Diet Patient's current hospital diet: Regular Diet Discharge Diet Recommended Diet: Regular Diet Procedures Procedures Performed: None. Pending Studies Studies pending at discharge: no Medical Emergencies . Who to Call and When: Medical Emergencies: If at any time you feel your situation is an emergency, please call 911 immediately. . Non-Emergent Contact Non-Emergency issues call your: Primary Care Provider . . "Provider Documentation" section prepared by Anny Santos. . VTE Core Measure Inpt VTE Proph given/why not?: Enoxaparin (Lovenox)ERICA, Melida Levine, SCD's
[2017-06-20] MEDS ORDERED: VNCS125 PO ×2 (15:43→16:06)
[2017-06-20] MEDS ORDERED: DOCU-94 PO (15:46)
[2017-06-20 15:53] VITALS: BP 93/60; PULSE 87; TEMP 37.1; O2SAT 95
--- NOTE | 2017-06-20 15:56 | Discharge Summary ---
Discharge Summary Date of Service Jun 20, 2017. Discharge Summary Admission Date: Jun 18, 2017 at 12:56 Discharge Date: Jun 20, 2017 Discharge Disposition: Home Principal Diagnosis: C-diff diarrhea Metastatic breast cancer Anemia of chronic disease Chronic pain 2/2 cancer Procedures: None. Vaccinations: None. Consultations: None. Pending Studies/Follow-Up: see instructions below. Medication Reconciliation New Medications: Docusate Sodium (Colace) 100 Mg Cap 100 MG PO BID PRN for Constipation for 30 Days, #60 CAP Vancomycin HCl (Vancomycin HCl) 125 Mg/2.5 Ml Susp 125 MG PO QID for 6 Days, #24 EA 0 Refills Continued Medications: Bupropion (Wellbutrin) 75 Mg Tab 150 MG PO QAM, TAB Calcium Carbonate-Cholecalcife (Calcium 600+D3 600-400 mg-Unit) 1 Tab Tab 1 TAB PO BID Cyclosporine (Ophth) (Restasis) 0.05 % Emu 1 DROP OPB BID, BTL Everolimus (Afinitor) 10 Mg Tab 10 MG PO QAM Exemestane (Aromasin) 25 Mg Tab 25 MG PO QAM, TAB Fentanyl (Fentanyl) 75 Mcg/Hr Dis 75 MCG TOP [id number] Gabapentin (Neurontin) 300 Mg Cap 300 MG PO Q4H, CAP Ibuprofen (Advil) 200 Mg Tab 200-400 MG PO Q4H PRN for Pain, TAB Lorazepam (Ativan) 1 Mg Tab 1 MG PO Q6H PRN for Anxiety/Agitation, TAB Multivitamins/Minerals (Mvi With Minerals) Tab 1 TAB PO DAILY, TAB Tramadol (Ultram) 50 Mg Tab 50 MG PO Q4-6HRS PRN for Pain, TAB Venlafaxine Hcl (Effexor Xr) 75 Mg Cap 75 MG PO QAM, CAP TAKE ONE 75 MG CAP ALONG WITH ONE 150 MG CAP TO EQUAL 225 MG DAILY DOSE Venlafaxine Hcl (Effexor Xr) 150 Mg Cap 150 MG PO QAM, CAP TAKE ONE 150 MG CAP ALONG WITH ONE 75 MG CAP TO EQUAL 225 MG DAILY DOSE Discontinued Medications: Denosumab (Xgeva) 120 Mg/1.7 Ml Inj 1 DOSE INJ Q3MO Admission Information HPI (per Admitting provider): This is a 56 yo f with past medical hx of 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 ) , depression ,presented to ED with ongoing diarrhea /abdominal cramps , pain for past few days , very poor appetite .on going nausea had chills , no fever in the ED xray of abdomen showed no evidence of obstruction or inflammation , 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 was afebrile , normal white count , chronic anemia with Hb stable to approx baseline stool sample positive for C diff toxin assay pt denies of any sick contact or recent travel recently treated with PO Clindamycin for dental procedure /infection approx 4 - 6 weeks back pt given PO Flagyl in ED , pt continued to have loose watery diarrhea associated with severe abdominal cramps pt will be admitted to Medical floor for Iv hydration , supportive Care for poor PO intake /nausea Physical Exam (per Admitting): General Appearance: + pertinent finding (chronically ill appearting ) Head: normocephalic, atraumatic Eyes: normal inspection, PERRL, EOMI, sclerae normal Neck: supple, no adenopathy, thyroid normal, no JVD Respiratory/Chest: chest non-tender, lungs clear, normal breath sounds, no respiratory distress Cardiovascular: regular rate, rhythm, no edema, no JVD, normal peripheral pulses Abdomen/GI: normal bowel sounds, soft, + tenderness (on lower abdomen ) Extremities/Musculoskelatal: no calf tenderness, normal capillary refill, no pedal edema Neurologic/Psych: no motor/sensory deficits, alert, normal mood/affect, oriented x 3 Hospital Course This is a 56 year old female with a PMH of recurrent and metastatic breast CA, anemia of chronic disease, depression presents with C. Diff 1. C-diff diarrhea-lytes stable, still with several bowel movements daily. Taking Bentyl. Instructed to avoid milk/dairy. Advancing diet to regular food. Stopped IVF. Cont Vanco PO. Given instruction on pathophysiology and community health related to c-diff. Answered all questions to her satisfaction and she was given [facility] website for more reading on her own. 2. metastatic breast cancer-some bleeding around site of heparin injection, likely related to this in conjunction with Ibuprofen use. will hold on injection today and restart Lovenox tomorrow morning. Home meds brought in and order given to continue these including Aromasin and Xfinitor. Pain controlled with gabapentin, fentanyl, tramadol and tylenol. Holding Ibuprofen for the time being. 3. Anemia of chronic disease-some dilutional component present likely related to 4 days of IVF. Also has metastatic breast cancer on treatment. On day of discharge she was afebrile and hemodynamically stable for >48 hours. She reportedly had some post-prandial pellet-sized stool but otherwise her diarrhea is minimal to none. Electrolytes were stable and she was tolerating regular food. She was ambulating and mentating at baseline. She was discharged in stable condition. Total time spent on discharge = 60 minutes This includes examination of the patient, discharge planning, medication reconciliation, and communication with other providers. Discharge Instructions [facility] [address] [place] [address] Discharge Medical Patient Name: Kay Valdivia Unit Number: [id number] Date of : 1960 Patient Status: Admitted Inpatient Attending Doctor: Anny Santos DO DI: Medical v4 Discharge Instructions Date of Service Jun 20, 2017. Admission Reason for Admission: C. Difficile Diarrhea Discharge Discharge Diagnosis / Problem: c-diff diarrhea Discharge Goals Goal(s): Prevent Disease Progression Activity Recommendations Activity Limitations: per Instructions/Follow-up section . Instructions / Follow-Up Instructions / Follow-Up Please take all medications as instructed. You have a follow-up appointment with Dr More on 06/23 @ 1100 for follow-up from this hospitalization. Please bring all paperwork from discharge. For more information about c-diff go to the following website: https:// www.cdc.gov/marlon/organisms/cdiff/cdiff-patient.html It was a pleasure taking care of you! Call if you have any questions or problems. You can reach a [facility] hospitalist on duty at [facility] 24 hours a day by calling [phone]. Take care of yourself. DO [facility] Hospitalist Current Hospital Diet Patient's current hospital diet: Regular Diet Discharge Diet Recommended Diet: Regular Diet Procedures Procedures Performed: None. Pending Studies Studies pending at discharge: no Medical Emergencies . Who to Call and When: Medical Emergencies: If at any time you feel your situation is an emergency, please call 911 immediately. . Non-Emergent Contact Non-Emergency issues call your: Primary Care Provider . . "Provider Documentation" section prepared by Anny Santos. . VTE Core Measure Inpt VTE Proph given/why not?: Enoxaparin (Lovenox)SQ, T.EJaqui. Stockings, SCD's Additional Copies To Parvez More M.D.
[2017-06-20] MEDS ORDERED: VANC1CAP19 PO (16:37)
== END 2017-06-20 18:33 | disposition home or self-care (01) | DRG 372 ==
LOC: C.EDB 15:41 → UNDOADMOB 23:10 → C.MS4W 23:10 → ENRESERV 23:29 → OBSVTOIN 06-18 12:56
PROVIDERS: ADMIT Hospitalist; ATTEND Hospitalist
DX: A04.7 Enterocolitis due to Clostridium difficile (principal); C79.51 Secondary malignant neoplasm of bone; G89.3 Neoplasm related pain (acute) (chronic); C50.919 Malignant neoplasm of unspecified site of unspecified female breast; D63.8 Anemia in other chronic diseases classified elsewhere; F32.9 Major depressive disorder, single episode, unspecified; Z92.3 Personal history of irradiation; Z79.811 Long term (current) use of aromatase inhibitors; Z79.891 Long term (current) use of opiate analgesic; Z79.899 Other long term (current) drug therapy; Z91.041 Radiographic dye allergy status

== ENCOUNTER → 2017-08-17 | Outpatient (CLI) | payer BC ==
[~2017-08-17] MED LIST changes: -ACET-1256 PO; +ATV/1 PO; +BUPR75TA20 PO; +CALC-574 PO; +CYCL0.052 OPB; +EVER10TA PO; +EXEM1TAB PO; +FENT75DI2 TOP; +GABA-113 PO; +IBUP-1050 PO; +MULT-513 PO; +TRAM-10 PO; +VANC1CAP19 PO; +VENL150C PO; +VENL75CA PO
--- NOTE | 2017-08-18 14:33 | MAMMOGRAPHY REPORT ---
BILATERAL DIGITAL SCREENING MAMMOGRAM TOMOSYNTHESIS WITH CAD: 08/17/2017 CLINICAL HISTORY: Asymptomatic. Personal history of breast cancer. TECHNIQUE: Breast tomosynthesis in addition to standard 2D mammography was performed. Current study was also evaluated with a Computer Aided Detection (CAD) system. COMPARISON: Comparison is made to exams dated: 06/09/2016 mammogram, 05/09/2015 mammogram, 05/08/2014 m ammogram, 04/27/2013 mammogram, 10/12/2010 mammogram, and 10/09/2009 mammogram - [facility]. BREAST COMPOSITION: The tissue of both breasts is heterogeneously dense, which may obscure small mas ses. FINDINGS: There are possible increasing microcalcifications in the superior right breast, for which a dditional spot magnification views are recommended. Possible area of architectural distortion in the medial right breast only seen on the CC view (tomosynthesis slice 22/66), for which additional spot compression tomosynthesis views and possible ultrasound are recommended. Otherwise there is stable expected architectural distortion and dystrophic calcification in the upper outer posterior right breast at the site of prior surgery. No other suspicious mass, architectural distortion or cluster of microcalcifications is seen bilaterally. IMPRESSION: ACR BI-RADS CATEGORY 0: INCOMPLETE EVALUATION: NEED ADDITIONAL IMAGING EVALUATION The possible increasing microcalcifications in the superior right breast, and possible area of archi tectural distortion in the medial right breast need additional imaging evaluation. The patient will be called to schedule an appointment. Approximately 10% of breast cancers are not detected with mammography. A negative mammographic report should not delay biopsy if a clinically suggestive mass is present. Eliana Cano M.D. ay/:08/17/2017 16:00:58 Games Dealer: Sandra QUAN(Enrique)(M), [facility] letter sent: Addl Imaging 0 BI-RADS Code: ACR BI-RADS Category 0: Incomplete Evaluation: Need Additional Imaging Evaluation
== END | disposition home or self-care (01) ==
LOC: C.MAMM 14:55
PROVIDERS: ATTEND Internal Medicine Hematology
DX: Z12.31 Encounter for screening mammogram for malignant neoplasm of breast (principal); R92.8 Other abnormal and inconclusive findings on diagnostic imaging of breast; Z85.3 Personal history of malignant neoplasm of breast